=== PATIENT | female | born 1970 | race Two or more races ===

== ENCOUNTER 2020-07-07 21:34 | Inpatient (IN) | payer BC ==
[~2020-07-07] VITALS: Ht 162.6 cm; Wt 71.1 kg
[2020-07-07 22:52] LABS: BASO % 0 % (0-3); EOS % 0 % (0-3); HEMOGLOBIN 13.9 g/dL (12.0-15.5); LYMPH # 0.5 x10^3/uL (1.0-4.8); LYMPH % 13 % (24-48); MEAN CORPUSCULAR HEMOGLOBIN 31 pg (25-35); MEAN CORPUSCULAR HGB CONC 35 g/dL (31-37); MEAN CORPUSCULAR VOLUME 89 fL (79-100); MONO # 0.3 x10^3/uL (0.0-1.1); MONO % 7 % (0-9); NEUT % 80 % (31-73); PLATELET COUNT 247 x10^3/uL (140-400); RED BLOOD COUNT 4.52 x10^6/uL (3.50-5.40); RED CELL DISTRIBUTION WIDTH 12.8 % (11.5-14.5); WHITE BLOOD COUNT 3.8 x10^3/uL (4.0-11.0)
--- NOTE | 2020-07-07 22:57 | RAD ---
INDICATION: Reason: SHORT OF BREATH COVID 19 + / Spl. Instructions: / History: COMPARISON: None. FINDINGS: Single view of chest obtained. Multifocal opacities throughout the bilateral lungs. Degenerative changes of the spine. Cardiac silho uette is unremarkable. IMPRESSION: * Multifocal opacities throughout the bilateral lungs. Could be secondary to bilateral infiltrate. Electronically signed by: Kevin Isaac MD (07/07/2020 10:54 PM) [id number]
[2020-07-07 23:02] LABS: CALCIUM 9.6 mg/dL (8.5-10.1); CREATININE 1.1 mg/dL (0.6-1.0); GFR 52.8; POTASSIUM 4.2 mmol/L (3.5-5.1)
[2020-07-07 23:07] LABS: ALBUMIN 3.1 g/dL (3.4-5.0); ALBUMIN/GLOBULIN RATIO 0.6 (1.0-1.7); TOTAL BILIRUBIN 0.4 mg/dL (0.2-1.0); TOTAL PROTEIN 8.3 g/dL (6.4-8.2)
[2020-07-07] MEDS ORDERED: DEXAMETHASONE SOD PHOS 20 MG/5 ML VIAL. IV ONE (23:45)
[2020-07-07] MEDS ORDERED: AZITHRMYCN 500MG IVPB FOR OMNI 250 ML IV ONE (23:45)
[2020-07-07] MEDS ORDERED: cefTRIAXone IV Push 1 GM VIAL. IVP ONE (23:45)
[2020-07-07] MEDS ORDERED: IOHEXOL 350 MG/ML 100 ML VIAL. IV ONE (23:45)
[2020-07-07] MEDS ORDERED: CONTRAST GIVEN. MC PRN (23:45)
[2020-07-08 00:08] LABS: BASE EXCESS COOX -4 mmol/L (-3-3); HCO3 COOX 20 mmol/L (21-28); METHEMOGLOBIN 0.3 % (0.0-1.9); OXYHEMOGLOBIN 95.6 %; PCO2 COOX 34 mmHg (35-46); PO2 COOX 84 mmHg (75-108); SAT O2 COOX 96 % (92-99)
--- NOTE | 2020-07-08 00:32 | RAD ---
CT angiography chest with contrast PQRS statement: CT scans at this facility use dose reduction including either automated exposure cont rol, iterative reconstructions, and /or weight based radiation dosing via mA and kV modification when appropriate to reduce radiation dose to as low as reasonably achievable. Contrast: 75 mL Omnipaque 350 intravenous contrast. 3-D MIP reconstructions of the arteries acquired. HISTORY: Shortness of breath, hypoxia, elevated d-dimer. FINDINGS: Heart size normal. Aorta and esophagus are unremarkable. There is extensive respiratory mot ion artifact limiting assessment for peripheral lobar pulmonary artery emboli although in light of th is there is no discrete pulmonary artery emboli evident on this examination. Mild enlarged mediastina l adenopathy largest of which at the subcarinal station measure 2 x 1 cm. Mild hilar adenopathy measu ring up to 1 cm. Bilateral heterogeneous pulmonary groundglass opacities, there is airspace consolida tion at the lung bases. No pneumothorax. No pleural effusions. Bones are unremarkable. IMPRESSION: 1. No pulmonary artery emboli evident. See above. 2. Extensive pulmonary groundglass opacities and consolidated opacities. This is typical of multiloba r pneumonia or pneumonitis, including atypical infection such as viral Covid pneumonia. Follow-up CT imaging in 3-6 months will be of benefit. 3. Mild mediastinal and hilar adenopathy. Electronically signed by: Jb Wise MD (07/08/2020 12:29 AM) [facility]
--- NOTE | 2020-07-08 01:12 | PHYS DOC ---
Past Medical History Past Medical History: Diabetes-Type II, High Cholesterol, Hypertension Past Surgical History: , Hysterectomy Smoking Status: Never Smoker Alcohol Use: None General Adult EDM: Chief Complaint: SHORTNESS OF BREATH HPI: HPI: Patient is a 50 year old female, patient speaks Serbian only, HPI interpreted by medical tobacco buyer. Patient reports becoming positive for the COVID-19 virus on 07/01/2020, patient states that she has had headaches every day for the past 2 weeks, off-and-on body aches with off and on chills and fever however she has not taken her temperature at home. Patient complains of chest pain when she coughs however does not have chest pain if she has not coughing. Patient complains of increased shortness of breath that got worse today. Patient denies nausea, vomiting, diarrhea, abdominal pains. Patient denies loss of taste or loss of smell. Patient denies chest congestion stating that her cough is a dry cough. Patient denies nasal congestion. States that when she takes Motrin her headache goes away and her pain is a 0/10 on a 1-10 pain scale, however currently her pain is a 3/10 on a 1-10 pain scale. Is any allergies to medications patient states that she is diabetic and takes p.o. Metformin, insulin, and pravastatin. Review of Systems: Review of Systems: 14 body systems of review of systems have been reviewed. See HPI for pertinent positives and negative responses, otherwise all other systems are negative, nonpertinent or noncontributory. Heart Score: HEART Score for Chest Pain: HEART Score for Chest Pain Response (Comments) Value History Slighlty/Non-Suspicious 0 ECG Normal 0 Age >45 - < 65 1 Risk Factors 1 or 2 Risk Factors 1 Troponin < Normal Limit 0 Total 2 Risk Factors: Risk Factors: DM, Current or recent (<one month) smoker, HTN, HLP, family history of CAD, obesity. Risk Scores: Score 0 - 3: 2.5% MACE over next 6 weeks - Discharge Home Score 4 - 6: 20.3% MACE over next 6 weeks - Admit for Clinical Observation Score 7 - 10: 72.7% MACE over next 6 weeks - Early Invasive Strategies Current Medications: Current Medications Medications (Trade) Dose Ordered Sig/Antonia Start Time Stop Time Status Last Admin Dose Admin Azithromycin 250 ml @ 250 mls/hr 1X ONCE 2/1/21 23:45 07/08/20 00:44 DC 07/08/20 00:51 250 MLS/HR Ceftriaxone Sodium (Rocephin) 1 gm 1X ONCE 07/07/20 23:45 07/07/20 23:46 DC 07/08/20 00:51 1 GM Dexamethasone Sodium Phosphate (Decadron) 10 mg 1X ONCE 07/07/20 23:45 07/07/20 23:46 DC 07/08/20 00:52 10 MG Info (CONTRAST GIVEN -- Rx MONITORING) 1 each PRN DAILY PRN 07/07/20 23:45 07/09/20 23:44 Iohexol (Omnipaque 350 Mg/ml) 75 ml 1X ONCE 07/07/20 23:45 07/07/20 23:46 DC 07/07/20 00:15 75 ML Allergies: Allergies: Allergies Coded Allergies Type Severity Reaction Last Updated Verified No Known Drug Allergies 07/07/20 No Physical Exam: PE: Constitutional: Well developed, well nourished, no acute distress, non-toxic appearance. Patient in no respiratory distress however was coughing during physical examination. HENT: Normocephalic, atraumatic, bilateral external ears normal, oropharynx moist, no oral exudates, nose normal. Eyes: PERRLA, EOMI, conjunctiva normal, no discharge. Neck: Normal range of motion, no tenderness, supple, no stridor. Cardiovascular:Heart rate regular rhythm, no murmur Lungs & Thorax: Bilateral breath sounds diminished all lung han, no other adventitious lung sounds appreciated. Abdomen: Bowel sounds normal, soft, no tenderness, no masses, no pulsatile masses. Skin: Warm, dry, no erythema, no rash. Back: No tenderness, no CVA tenderness. Extremities: No tenderness, no cyanosis, no clubbing, ROM intact, no edema. Neurologic: Alert and oriented X 3, normal motor function, normal sensory function, no focal deficits noted. Psychologic: Affect normal, judgement normal, mood normal. Current Patient Data: Labs: Laboratory Tests Test 07/07/20 22:30 07/07/20 23:59 White Blood Count 3.8 x10^3/uL (4.0-11.0) L Red Blood Count 4.52 x10^6/uL (3.50-5.40) Hemoglobin 13.9 g/dL (12.0-15.5) Hematocrit 40.0 % (36.0-47.0) Mean Corpuscular Volume 89 fL (79-100) Mean Corpuscular Hemoglobin 31 pg (25-35) Mean Corpuscular Hemoglobin Concent 35 g/dL (31-37) Red Cell Distribution Width 12.8 % (11.5-14.5) Platelet Count 247 x10^3/uL (140-400) Neutrophils (%) (Auto) 80 % (31-73) H Lymphocytes (%) (Auto) 13 % (24-48) L Monocytes (%) (Auto) 7 % (0-9) Eosinophils (%) (Auto) 0 % (0-3) Basophils (%) (Auto) 0 % (0-3) Neutrophils # (Auto) 3.0 x10^3/uL (1.8-7.7) Lymphocytes # (Auto) 0.5 x10^3/uL (1.0-4.8) L Monocytes # (Auto) 0.3 x10^3/uL (0.0-1.1) Eosinophils # (Auto) 0.0 x10^3/uL (0.0-0.7) Basophils # (Auto) 0.0 x10^3/uL (0.0-0.2) D-Dimer (Charley) 0.79 ug/mlFEU (0.00-0.50) H Sodium Level 136 mmol/L (136-145) Potassium Level 4.2 mmol/L (3.5-5.1) Chloride Level 99 mmol/L (98-107) Carbon Dioxide Level 23 mmol/L (21-32) Anion Gap 14 (6-14) Blood Urea Nitrogen 17 mg/dL (7-20) Creatinine 1.1 mg/dL (0.6-1.0) H Estimated GFR (Cockcroft-Gault) 52.8 BUN/Creatinine Ratio 15 (6-20) Glucose Level 465 mg/dL (70-99) H Lactic Acid Level 1.1 mmol/L (0.4-2.0) Calcium Level 9.6 mg/dL (8.5-10.1) Total Bilirubin 0.4 mg/dL (0.2-1.0) Aspartate Amino Transferase (AST) 29 U/L (15-37) Alanine Aminotransferase (ALT) 40 U/L (14-59) Alkaline Phosphatase 80 U/L (46-116) Troponin I Quantitative < 0.017 ng/mL (0.000-0.055) UU-Wsb-U-Type Natriuretic Peptide 35 pg/mL (0-124) Total Protein 8.3 g/dL (6.4-8.2) H Albumin 3.1 g/dL (3.4-5.0) L Albumin/Globulin Ratio 0.6 (1.0-1.7) L O2 Saturation 96 % (92-99) Arterial Blood pH 7.40 (7.35-7.45) Arterial Blood pCO2 at Patient Temp 34 mmHg (35-46) L Arterial Blood pO2 at Patient Temp 84 mmHg (75-108) Arterial Blood HCO3 20 mmol/L (21-28) L Arterial Blood Base Excess -4 mmol/L (-3-3) L Oxyhemoglobin 95.6 % Methemoglobin 0.3 % (0.0-1.9) Carbon Monoxide, Quantitative 0.2 % (0.0-1.9) FiO2 21 Laboratory Tests 07/07/20 22:30 Laboratory Tests 07/07/20 22:30 Vital Signs: Vital Signs Date Time Temp Pulse Resp B/P (MAP) Pulse Ox O2 Delivery O2 Flow Rate FiO2 07/08/20 00:30 97.3 103 24 139/77 (97) 96 Nasal Cannula 2.0 97.3 EKG: EKG: EKG performed at 2227 by ED nursing staff, shows a sinus tachycardia without other ectopy, IA interval 0.150, QTc interval 0.460, no acute STEMI, no ACS, no acute ischemia appreciated, EKG interpreted by ED attending physician Dr. Donahue. Radiology/Procedures: Radiology/Procedures: PATIENT: RYLIE SALINASACCOUNT: [id number] : 1970 LOCATION: ER AGE: 50 SEX: F EXAM STATUS: REG ER ORD. PHYSICIAN: APOLINAR WATTS APRN REASON: SHORT OF BREATH, HYPOXIA, HIGH D-DIMER PROCEDURE: CT ANGIOGRAPHY CHEST CT angiography chest with contrast PQRS statement: CT scans at this facility use dose reduction including either automated exposure control, iterative reconstructions, and /or weight based radiation dosing via mA and kV modification when appropriate to reduce radiation dose to as low as reasonably achievable. Contrast: 75 mL Omnipaque 350 intravenous contrast. 3-D MIP reconstructions of the arteries acquired. HISTORY: Shortness of breath, hypoxia, elevated d-dimer. FINDINGS: Heart size normal. Aorta and esophagus are unremarkable. There is e xtensive respiratory motion artifact limiting assessment for peripheral lobar pulmonary artery emboli although in light of this there is no discrete pulmonary artery emboli evident on this examination. Mild enlarged mediastinal adenopathy largest of which at the subcarinal station measure 2 x 1 cm. Mild hilar adenopathy measuring up to 1 cm. Bilateral heterogeneous pulmonary groundglass opacities, there is airspace consolidation at the lung bases. No pneumothorax. No pleural effusions. Bones are unremarkable. IMPRESSION: 1. No pulmonary artery emboli evident. See above. 2. Extensive pulmonary groundglass opacities and consolidated opacities. This is typical of multilobar pneumonia or pneumonitis, including atypical infection such as viral Covid pneumonia. Follow-up CT imaging in 3-6 months will be of benefit. 3. Mild mediastinal and hilar adenopathy. Electronically signed by: Tiffany Wise MD (07/08/2020 12:29 AM) [facility] DICTATED and SIGNED BY: TIFFANY WISE MD DATE: 07/08/20 [id number] PATIENT: RYLIE SALINASACCOUNT: [id number] : 1970 LOCATION: ER AGE: 50 SEX: F EXAM STATUS: REG ER ORD. PHYSICIAN: APOLINAR WATTS APRN REASON: SHORT OF BREATH COVID 19 + PROCEDURE: CHEST AP ONLY INDICATION: Reason: SHORT OF BREATH COVID 19 + / Spl. Instructions: / History: COMPARISON: None. FINDINGS: Single view of chest obtained. Multifocal opacities throughout the bilateral lungs. Degenerative changes of the spine. Cardiac silhouette is unremarkable. IMPRESSION: * Multifocal opacities throughout the bilateral lungs. Could be secondary to bilateral infiltrate. Electronically signed by: Rodriguez Isaac MD (07/07/2020 10:54 PM) [id number] DICTATED and SIGNED BY: RODRIGUEZ ISAAC MD DATE: 07/07/20 [id number] 0 Course & Med Decision Making: Course & Med Decision Making Pertinent Labs and Imaging studies reviewed. (See chart for details) 50-year-old female, vital signs reviewed, presents emergency department complaining of becoming COVID-19 positive on 01 July 2020. Patient states that she has had headaches every day since then, noticed increasing cough shortness of breath that became worse today. Patient states that she has chest pain when she coughs but is relieved with taking p.o. Tylenol. In ER work-up was initiated, EKG, cardiac enzymes, CBC, BMP, D-dimer, lactic acid, blood cultures x2. Chest x-ray 1 view. Patient lactic acid negative, D-dimer was elevated, a CT angio chest was pe rformed CT angio chest and 1 view chest x-ray concerning for bilateral pneumonia. Patient's blood sugar per serum elevated at 465, started 1 L normal saline with 5 units IV regular insulin. Patient's ABG revealed a PO2 of 84 on 2 L nasal cannula, will keep patient on 2 L per nasal cannula. Discussed patient case with ED attending Dr. Donahue who agreed patient should be admitted to [facility] for diagnosis of COVID-19 positive, community-acquired pneumonia, bilateral pneumonia, hypoxia, poorly controlled diabetes. Patient admitted to [facility] Dr. Thurston. Patient admitted to the medicaltelemetry unit. Dr. Thurston has taken over care at this time. Patient COVID-19 positive, I wore N95 mask, goggles, face shield, PPE protective gown and gloves, there was a air purifier in the room at all times when in contact with patient. David Disclaimer: David Disclaimer: This electronic medical record was generated, in whole or in part, using a voice recognition dictation system. Departure Departure Impression: Primary Impression: COVID-19 Additional Impressions: Community acquired pneumonia Qualified Codes: J18.9 - Pneumonia, unspecified organism Bilateral pneumonia Qualified Codes: J18.9 - Pneumonia, unspecified organism Hypoxia Poorly controlled diabetes mellitus Disposition: 09 ADMITTED INPT THIS HOSP Admitting Physician: [facility] (Admit to medtelemetry to Dr. Thurston.) Condition: GUARDED Referrals: NO PCP (PCP) APOLINAR WATTS APRN Jul 08, 2020 01:12
[2020-07-08] MEDS ORDERED: ACETAMINOPHEN 325 MG TABLET. PO PRN ×2 (01:45→11:30)
[2020-07-08] MEDS ORDERED: fentaNYL PF VIAL 100 MCG/2 ML VIAL IV PRN (01:45)
[2020-07-08] MEDS ORDERED: ONDANSETRON PF 4 MG/2 ML VIAL. IV PRN (01:45)
[2020-07-08] MEDS ORDERED: IV NORMAL SALINE 1000ML BAG 1,000 ML IV ONE (02:00)
[2020-07-08] MEDS ORDERED: INSULIN REGULAR 100 UNIT/ML 3ML VIAL. IV ONE (02:00)
[2020-07-08] MEDS ORDERED: INSU100V13 SQ (02:48)
[2020-07-08] MEDS ORDERED: PRAV40TA2 PO (02:48)
[2020-07-08] MEDS ORDERED: METF10007 PO (02:48)
[2020-07-08] MEDS ORDERED: GLIM2TAB7 PO (02:48)
[2020-07-08 03:14] VITALS: BP 125/76
[2020-07-08] MEDS: BENZONATATE 100 MG CAPSULE. PO PRN ×3 (05:31→21:28)
[2020-07-08 07:00] VITALS: BP 115/71
--- NOTE | 2020-07-08 08:32 | EKG ---
[facility] [address] [place] [address] Test Date: 2020-07-07 Test Time: 22:27:10 Pat Name: RYLIE SALINAS Department: Room: [facility] Gender: F Website Admin: : 1970 Requested By: APOLINAR WATTS Order Number: [id number] Reading MD: Omar Sanchez Measurements Intervals [place] Rate: 111 P: 27 ID: 150 QRS: -30 QRSD: 100 T: 4 QT: 336 QTc: 460 Interpretive Statements SINUS TACHYCARDIA ABNORMAL LEFT AXIS DEVIATION LEFT ANTERIOR FASCICULAR BLOCK T ABNORMALITY IN ANTERIOR LEADS ABNORMAL ECG RI6.02 No previous ECG available for comparison Electronically Signed On 07-15-2020 10:30:15 ELECTRICAL PROSPECTING OBSERVER by Omar Sanchez
[2020-07-08] MEDS ORDERED: BISACODYL 10 MG SUPP.RECT. PR PRN (11:30)
[2020-07-08] MEDS ORDERED: MAG HYDROX/ALUMINUM HYD/SIMETH 30 ML ORAL.SUSP PO PRN (11:30)
[2020-07-08] MEDS ORDERED: ONDANSETRON PF 4 MG/2 ML VIAL. IVP PRN (11:30)
[2020-07-08] MEDS ORDERED: MAGNESIUM HYDROXIDE 2,400 MG/30 ML ORAL.SUSP. PO PRN (11:30)
[2020-07-08] MEDS ORDERED: DEXTROSE 50% 25 GM / 50ML DISP.SYRIN. IV PRN (11:30)
[2020-07-08] MEDS ORDERED: ELECTROLYTE (NON-ICU) PROTOCOL. MC PRN (11:30)
[2020-07-08] MEDS ORDERED: MORPHINE SULFATE 2 MG/ML VIAL. IV PRN (11:30)
[2020-07-08] MEDS ORDERED: LACTULOSE 20 GM/30 ML SOLUTION. PO PRN (11:30)
[2020-07-08] MEDS ORDERED: CALCIUM CARBONATE 500 MG TAB.CHEW PO PRN (11:30)
[2020-07-08 11:35] VITALS: BP 120/77
[2020-07-08] MEDS: INSULIN LISPRO 300 UNITS/3 ML VIAL. SQ SCH ×2 (11:43→17:10)
[2020-07-08] MEDS ORDERED: INSULIN GLARGINE SYRINGE. SQ SCH ×2 (12:00→21:00)
--- NOTE | 2020-07-08 12:10 | PDOC1 ---
History and Physical Date of Admission Date of Admission 07/08/2020 Identification/Chief Complaint Chief Complaint I have covid Source Source: Chart review, Patient History of Present Illness History of Present Illness Patient is a 50-year-old female with past medical history of diabetes and hypertension dyslipidemia who was in her usual state of health until last week when her unfortunately was diagnosed with Covid. He is admitted to our institution as well and got quite sick and requiring oxygen reason why he was brought to the emergency department and the patient's also has worsen her condition. We have been asked to admit for supportive measures. The patient at the time my evaluation is in no apparent distress feels better compared to admission. She does not present severe dyspnea she denies any headaches no blurred vision no dysphagia odynophagia no focal neurological deficits no chest pain no palpitation no abdominal pain no nausea vomiting or diarrhea has been reported. Plan of care has been explained detail and all of her concerns were addressed to the best of my abilities Past Medical History Cardiovascular: HTN, Hyperlipidemia Endocrine: Diabetes Past Surgical History Past Surgical History: No pertinent history Family History Family History: No Significant Social History Smoke: No ALCOHOL: none Drugs: None Current Problem List Problem List Problems Medical Problems: (1) Bilateral pneumonia Status: Acute (2) Community acquired pneumonia Status: Acute (3) COVID-19 Status: Acute (4) Hypoxia Status: Acute (5) Poorly controlled diabetes mellitus Status: Acute Current Medications Current Medications Current Medications Medications (Trade) Dose Ordered Sig/Antonia Start Time Stop Time Status Last Admin Dose Admin Acetaminophen (Tylenol) 650 mg PRN Q4HRS PRN 07/08/20 01:45 07/09/20 01:44 07/08/20 05:31 650 MG Azithromycin 250 ml @ 250 mls/hr 1X ONCE 07/07/20 23:45 07/08/20 00:44 DC 07/08/20 00:51 250 MLS/HR Benzonatate (Tessalon Perle) 100 mg PRN TID PRN 07/08/20 03:30 07/08/20 05:31 100 MG Ceftriaxone Sodium (Rocephin) 1 gm 1X ONCE 07/07/20 23:45 07/07/20 23:46 DC 07/08/20 00:51 1 GM Dexamethasone Sodium Phosphate (Decadron) 10 mg 1X ONCE 07/07/20 23:45 07/07/20 23:46 DC 07/08/20 00:52 10 MG Dextrose (Dextrose 50%-Water Syringe) 12.5 gm PRN Q15MIN PRN 07/08/20 11:30 Fentanyl Citrate (Fentanyl 2ml Vial) 50 mcg PRN Q4HRS PRN 07/08/20 01:45 07/09/20 01:44 07/08/20 05:31 50 MCG Info (CONTRAST GIVEN -- Rx MONITORING) 1 each PRN DAILY PRN 07/07/20 23:45 07/09/20 23:44 Insulin Glargine (Lantus Syringe) 12 unit BID 07/08/20 12:00 07/08/20 11:42 12 UNIT Insulin Human Lispro (HumaLOG) 0-7 UNITS TIDWMEALS 07/08/20 12:00 07/08/20 11:43 7 UNITS Insulin Human Regular (HumuLIN R VIAL) 5 unit 1X ONCE 07/08/20 02:00 07/08/20 02:01 DC 07/08/20 01:56 5 UNIT Iohexol (Omnipaque 350 Mg/ml) 75 ml 1X ONCE 07/07/20 23:45 07/07/20 23:46 DC 07/07/20 00:15 75 ML Ondansetron HCl (Zofran) 4 mg PRN Q8HRS PRN 07/08/20 01:45 07/09/20 01:44 Sodium Chloride 1,000 ml @ 1,000 mls/hr 1X ONCE 07/08/20 02:00 07/08/20 02:59 DC 07/08/20 01:56 1,000 MLS/HR Allergies Allergies Allergies Coded Allergies Type Severity Reaction Last Updated Verified No Known Drug Allergies 07/07/20 No ROS Review of System CONSTITUTIONAL: No fever or chills EYES: No recent changes SKIN: No rash or itching CARDIOVASCULAR: No chest pain, syncope, palpitations, or edema RESPIRATORY: No SOB or cough GASTROINTESTINAL: No nausea, vomiting or abdominal pain NEUROLOGICAL: No headaches or weakness ENDOCRINE: No cold or heat intolerance GENITOURINARY: No urgency or frequency of urination MUSCULOSKELETAL: No back pain or joint pain LYMPHATICS: No enlarged lymph nodes PSYCHIATRIC: No anxiety or depression Physical Exam Physical Exam GEN: No apparent distress. Alert and oriented HEENT: Normal cephalic, atraumatic, external auditory canals are patent. Mucous membranes are moist but appears to be pale as well. EYES: Extraocular muscles are intact, pupil are equally round and reactive to light and accommodation. Conjunctive does appear to be pale MUSCULOSKELETAL: Well developed , well nourished, good range of motion ENDOCRINE: No thyromegaly was palpated LYMPHATICS: No cervical chain or axillary nodes were noted HEMATOPOIETIC: No bruising NECK: Supple, no JVD, no thyromegaly was noted LUNGS: Clear to auscultation in all lung han without rhonchi or wheezing HEART: RRR, S!, S2 present. Peripheral pulses intact, no obvious murmurs noted ABDOMEN: Soft, nontender. Positive bowel sounds, no organomegaly, normal bowel sounds EXTREMITIES: Without clubbing, cyanosis, or edema. Pedal pulses intact. Negative Homans sign NEUROLOGIC: Normal speech and tone. A&O x 3, moves all extremities, no o bvious focal deficits PSYCHIATRIC: Normal affect, normal mood. Stable SKIN: No ulcerations or rashes, good skin turgor, no jaundice VASCULAR: Good capillary refill, neurovascular bundle appears to be intact Tions Vitals Vitals Vital Signs Date Time Temp Pulse Resp B/P (MAP) Pulse Ox O2 Delivery O2 Flow Rate FiO2 07/08/20 11:35 98.4 102 24 120/77 (91) 93 Nasal Cannula 2.0 98.4 Labs Labs Laboratory Tests Test 07/07/20 22:30 07/07/20 23:59 07/08/20 07:51 07/08/20 10:48 White Blood Count 3.8 x10^3/uL (4.0-11.0) Red Blood Count 4.52 x10^6/uL (3.50-5.40) Hemoglobin 13.9 g/dL (12.0-15.5) Hematocrit 40.0 % (36.0-47.0) Mean Corpuscular Volume 89 fL (79-100) Mean Corpuscular Hemoglobin 31 pg (25-35) Mean Corpuscular Hemoglobin Concent 35 g/dL (31-37) Red Cell Distribution Width 12.8 % (11.5-14.5) Platelet Count 247 x10^3/uL (140-400) Neutrophils (%) (Auto) 80 % (31-73) Lymphocytes (%) (Auto) 13 % (24-48) Monocytes (%) (Auto) 7 % (0-9) Eosinophils (%) (Auto) 0 % (0-3) Basophils (%) (Auto) 0 % (0-3) Neutrophils # (Auto) 3.0 x10^3/uL (1.8-7.7) Lymphocytes # (Auto) 0.5 x10^3/uL (1.0-4.8) Monocytes # (Auto) 0.3 x10^3/uL (0.0-1.1) Eosinophils # (Auto) 0.0 x10^3/uL (0.0-0.7) Basophils # (Auto) 0.0 x10^3/uL (0.0-0.2) D-Dimer (Charley) 0.79 ug/mlFEU (0.00-0.50) Sodium Level 136 mmol/L (136-145) Potassium Level 4.2 mmol/L (3.5-5.1) Chloride Level 99 mmol/L (98-107) Carbon Dioxide Level 23 mmol/L (21-32) Anion Gap 14 (6-14) Blood Urea Nitrogen 17 mg/dL (7-20) Creatinine 1.1 mg/dL (0.6-1.0) Estimated GFR (Cockcroft-Gault) 52.8 BUN/Creatinine Ratio 15 (6-20) Glucose Level 465 mg/dL (70-99) Lactic Acid Level 1.1 mmol/L (0.4-2.0) Calcium Level 9.6 mg/dL (8.5-10.1) Total Bilirubin 0.4 mg/dL (0.2-1.0) Aspartate Amino Transf (AST/SGOT) 29 U/L (15-37) Alanine Aminotransferase (ALT/SGPT) 40 U/L (14-59) Alkaline Phosphatase 80 U/L (46-116) Troponin I Quantitative < 0.017 ng/mL (0.000-0.055) YO-Lmn-V-Type Natriuretic Peptide 35 pg/mL (0-124) Total Protein 8.3 g/dL (6.4-8.2) Albumin 3.1 g/dL (3.4-5.0) Albumin/Globulin Ratio 0.6 (1.0-1.7) O2 Saturation 96 % (92-99) Arterial Blood pH 7.40 (7.35-7.45) Arterial Blood pCO2 at Patient Temp 34 mmHg (35-46) Arterial Blood pO2 at Patient Temp 84 mmHg (75-108) Arterial Blood HCO3 20 mmol/L (21-28) Arterial Blood Base Excess -4 mmol/L (-3-3) Oxyhemoglobin 95.6 % Methemoglobin 0.3 % (0.0-1.9) Carbon Monoxide, Quantitative 0.2 % (0.0-1.9) FiO2 21 Glucose (Fingerstick) 363 mg/dL (70-99) 457 mg/dL (70-99) Laboratory Tests Test 07/07/20 22:30 07/07/20 23:59 07/08/20 07:51 07/08/20 10:48 White Blood Count 3.8 x10^3/uL (4.0-11.0) Red Blood Count 4.52 x10^6/uL (3.50-5.40) Hemoglobin 13.9 g/dL (12.0-15.5) Hematocrit 40.0 % (36.0-47.0) Mean Corpuscular Volume 89 fL (79-100) Mean Corpuscular Hemoglobin 31 pg (25-35) Mean Corpuscular Hemoglobin Concent 35 g/dL (31-37) Red Cell Distribution Width 12.8 % (11.5-14.5) Platelet Count 247 x10^3/uL (140-400) Neutrophils (%) (Auto) 80 % (31-73) Lymphocytes (%) (Auto) 13 % (24-48) Monocytes (%) (Auto) 7 % (0-9) Eosinophils (%) (Auto) 0 % (0-3) Basophils (%) (Auto) 0 % (0-3) Neutrophils # (Auto) 3.0 x10^3/uL (1.8-7.7) Lymphocytes # (Auto) 0.5 x10^3/uL (1.0-4.8) Monocytes # (Auto) 0.3 x10^3/uL (0.0-1.1) Eosinophils # (Auto) 0.0 x10^3/uL (0.0-0.7) Basophils # (Auto) 0.0 x10^3/uL (0.0-0.2) D-Dimer (Charley) 0.79 ug/mlFEU (0.00-0.50) Sodium Level 136 mmol/L (136-145) Potassium Level 4.2 mmol/L (3.5-5.1) Chloride Level 99 mmol/L (98-107) Carbon Dioxide Level 23 mmol/L (21-32) Anion Gap 14 (6-14) Blood Urea Nitrogen 17 mg/dL (7-20) Creatinine 1.1 mg/dL (0.6-1.0) Estimated GFR (Cockcroft-Gault) 52.8 BUN/Creatinine Ratio 15 (6-20) Glucose Level 465 mg/dL (70-99) Lactic Acid Level 1.1 mmol/L (0.4-2.0) Calcium Level 9.6 mg/dL (8.5-10.1) Total Bilirubin 0.4 mg/dL (0.2-1.0) Aspartate Amino Transf (AST/SGOT) 29 U/L (15-37) Alanine Aminotransferase (ALT/SGPT) 40 U/L (14-59) Alkaline Phosphatase 80 U/L (46-116) Troponin I Quantitative < 0.017 ng/mL (0.000-0.055) KF-Yhl-K-Type Natriuretic Peptide 35 pg/mL (0-124) Total Protein 8.3 g/dL (6.4-8.2) Albumin 3.1 g/dL (3.4-5.0) Albumin/Globulin Ratio 0.6 (1.0-1.7) O2 Saturation 96 % (92-99) Arterial Blood pH 7.40 (7.35-7.45) Arterial Blood pCO2 at Patient Temp 34 mmHg (35-46) Arterial Blood pO2 at Patient Temp 84 mmHg (75-108) Arterial Blood HCO3 20 mmol/L (21-28) Arterial Blood Base Excess -4 mmol/L (-3-3) Oxyhemoglobin 95.6 % Methemoglobin 0.3 % (0.0-1.9) Carbon Monoxide, Quantitative 0.2 % (0.0-1.9) FiO2 21 Glucose (Fingerstick) 363 mg/dL (70-99) 457 mg/dL (70-99) VTE Prophylaxis Ordered VTE Prophylaxis Devices: No VTE Pharmacological Prophylaxi: Yes Assessment/Plan Assessment/Plan COVID-19 infection Diabetes mellitus type 2 insulin requiring Hypertension Dyslipidemia Overweight with a BMI of 27 Plan Start Solu-Medrol Insulin for hyperglycemia Vitamin C&D Zinc Monitor oxygen requirements DVT prophylaxis with Lovenox Further recommendations based on the clinical course Justifications for Admission Other Justification SUKHDEV GUERIN MD Jul 08, 2020 12:10
[2020-07-08] MEDS: ZINC SULFATE 220 MG CAPSULE. PO SCH (12:24)
[2020-07-08] MEDS: ENOXAPARIN 40 MG/0.4 ML SYRINGE. SQ SCH ×2 (12:25→21:29)
[2020-07-08] MEDS: ASCORBIC ACID 500 MG TABLET PO SCH ×2 (13:22→21:28)
[2020-07-08] MEDS: HYDROcodone/APAP 5/325MG 1 TAB TABLET PO PRN ×2 (13:22→21:59)
[2020-07-08] MEDS: methylPREDNISolone SOD SUCC PF 40 MG/ML VIAL. IV SCH ×2 (13:22→21:32)
--- NOTE | 2020-07-08 14:33 | NUR ---
SW following for discharge planning. Spoke with RN and reviewed chart. Pt from home with spouse (spouse also currently admitted to [facility]). Pt COVID positive and on 2l 02. Pt on IV Rocephin. SW following.
[2020-07-08 15:09] VITALS: BP 102/67
[2020-07-08] MEDS ORDERED: INSULIN GLARGINE SYRINGE. SQ ONE (17:30)
[2020-07-08 19:00] VITALS: BP 101/66
[2020-07-08] MEDS: SENNOSIDES/DOCUSATE 8.6/50MG TABLET. PO SCH (21:28)
[2020-07-08] MEDS: ATORVASTATIN CALCIUM 10 MG TABLET. PO SCH (21:29)
[2020-07-08] MEDS: cefTRIAXone IV Push 1 GM VIAL. IVP SCH (21:32)
[2020-07-08 23:00] VITALS: BP 129/75
[2020-07-08] MEDS ORDERED: INSULIN LISPRO 300 UNITS/3 ML VIAL. SQ ONE (23:30)
[2020-07-09 03:00] VITALS: BP 135/73
[2020-07-09] MEDS: BENZONATATE 100 MG CAPSULE. PO PRN ×3 (06:21→20:49)
[2020-07-09] MEDS: methylPREDNISolone SOD SUCC PF 40 MG/ML VIAL. IV SCH ×3 (06:21→20:50)
[2020-07-09 07:00] VITALS: BP 119/73
[2020-07-09 07:56] LABS: BASO % 0 % (0-3); EOS % 0 % (0-3); HEMOGLOBIN 14.1 g/dL (12.0-15.5); LYMPH # 0.7 x10^3/uL (1.0-4.8); LYMPH % 9 % (24-48); MEAN CORPUSCULAR HEMOGLOBIN 30 pg (25-35); MEAN CORPUSCULAR HGB CONC 34 g/dL (31-37); MEAN CORPUSCULAR VOLUME 88 fL (79-100); MONO # 0.6 x10^3/uL (0.0-1.1); MONO % 7 % (0-9); NEUT # 7.2 x10^3/uL (1.8-7.7); NEUT % 85 % (31-73); PLATELET COUNT 369 x10^3/uL (140-400); RED BLOOD COUNT 4.65 x10^6/uL (3.50-5.40); RED CELL DISTRIBUTION WIDTH 12.9 % (11.5-14.5); WHITE BLOOD COUNT 8.5 x10^3/uL (4.0-11.0)
[2020-07-09] MEDS: SENNOSIDES/DOCUSATE 8.6/50MG TABLET. PO SCH ×2 (08:23→20:49)
[2020-07-09] MEDS: CHOLECALCIFEROL (VITAMIN D3) 1,000 UNIT TABLET PO SCH (08:23)
[2020-07-09] MEDS: ZINC SULFATE 220 MG CAPSULE. PO SCH (08:23)
[2020-07-09] MEDS: AZITHROMYCIN 250 MG TABLET. PO SCH (08:24)
[2020-07-09] MEDS: ASCORBIC ACID 500 MG TABLET PO SCH ×3 (08:24→20:49)
[2020-07-09] MEDS: HYDROcodone/APAP 5/325MG 1 TAB TABLET PO PRN ×3 (08:29→20:50)
[2020-07-09] MEDS: ENOXAPARIN 40 MG/0.4 ML SYRINGE. SQ SCH ×2 (08:30→20:48)
[2020-07-09] MEDS: INSULIN LISPRO 300 UNITS/3 ML VIAL. SQ SCH ×3 (08:35→17:01)
[2020-07-09 08:54] LABS: CALCIUM 9.8 mg/dL (8.5-10.1); GFR 58.9; MAGNESIUM 2.4 mg/dL (1.8-2.4); PHOSPHORUS 3.9 mg/dL (2.6-4.7); POTASSIUM 4.3 mmol/L (3.5-5.1)
[2020-07-09] MEDS: INSULIN GLARGINE SYRINGE. SQ SCH ×2 (09:30→20:49)
[2020-07-09 11:00] VITALS: BP 113/66
--- NOTE | 2020-07-09 11:27 | PDOC ---
PROGRESS NOTES Date of Service: DATE: 07/09/20 TIME: 11:22 Chief Complaint Chief Complaint Assessment/Plan COVID-19 infection Diabetes mellitus type 2 insulin requiring Uncontrolled diabetes secondary to steroid Hypertension Dyslipidemia Overweight with a BMI of 27 Plan Solu-Medrol Insulin for hyperglycemia We will start lispro if the patient has good oral intake Vitamin C&D Zinc Monitor oxygen requirements DVT prophylaxis with Lovenox Further recommendations based on the clinical course History of Present Illness History of Present Illness History of Present Illness Patient is a 50-year-old female with past medical history of diabetes and hypertension dyslipidemia who was in her usual state of health until last week when her unfortunately was diagnosed with Covid. He is admitted to our institution as well and got quite sick and requiring oxygen reason why he was brought to the emergency department and the patient's also has worsen her condition. We have been asked to admit for supportive measures. The patient at the time my evaluation is in no apparent distress feels better compared to admission. She does not present severe dyspnea she denies any headaches no blurred vision no dysphagia odynophagia no focal neurological deficits no chest pain no palpitation no abdominal pain no nausea vomiting or diarrhea has been reported. Plan of care has been explained detail and all of her concerns were addressed to the best of my abilities 07/09: No acute events reported overnight, case discussed with nursing staff patient in no acute distress no complaints during my visit Vitals Vitals Vital Signs Date Time Temp Pulse Resp B/P (MAP) Pulse Ox O2 Delivery O2 Flow Rate FiO2 07/09/20 11:00 97.2 84 18 113/66 (82) 92 Nasal Cannula 4.0 97.2 Physical Exam General: Alert, Oriented X3, Cooperative, No acute distress Heart: Regular rate, Normal S1, Normal S2 Lungs: Clear Abdomen: Normal bowel sounds, Soft, No tenderness Extremities: No clubbing, No cyanosis Skin: No rashes Labs LABS Laboratory Tests Test 07/08/20 16:41 07/08/20 19:06 07/09/20 07:12 07/09/20 07:19 Glucose (Fingerstick) 406 mg/dL (70-99) 489 mg/dL (70-99) 369 mg/dL (70-99) White Blood Count 8.5 x10^3/uL (4.0-11.0) Red Blood Count 4.65 x10^6/uL (3.50-5.40) Hemoglobin 14.1 g/dL (12.0-15.5) Hematocrit 41.0 % (36.0-47.0) Mean Corpuscular Volume 88 fL (79-100) Mean Corpuscular Hemoglobin 30 pg (25-35) Mean Corpuscular Hemoglobin Concent 34 g/dL (31-37) Red Cell Distribution Width 12.9 % (11.5-14.5) Platelet Count 369 x10^3/uL (140-400) Neutrophils (%) (Auto) 85 % (31-73) Lymphocytes (%) (Auto) 9 % (24-48) Monocytes (%) (Auto) 7 % (0-9) Eosinophils (%) (Auto) 0 % (0-3) Basophils (%) (Auto) 0 % (0-3) Neutrophils # (Auto) 7.2 x10^3/uL (1.8-7.7) Lymphocytes # (Auto) 0.7 x10^3/uL (1.0-4.8) Monocytes # (Auto) 0.6 x10^3/uL (0.0-1.1) Eosinophils # (Auto) 0.0 x10^3/uL (0.0-0.7) Basophils # (Auto) 0.0 x10^3/uL (0.0-0.2) Sodium Level 138 mmol/L (136-145) Potassium Level 4.3 mmol/L (3.5-5.1) Chloride Level 99 mmol/L (98-107) Carbon Dioxide Level 27 mmol/L (21-32) Anion Gap 12 (6-14) Blood Urea Nitrogen 27 mg/dL (7-20) Creatinine 1.0 mg/dL (0.6-1.0) Estimated GFR (Cockcroft-Gault) 58.9 Glucose Level 364 mg/dL (70-99) Calcium Level 9.8 mg/dL (8.5-10.1) Phosphorus Level 3.9 mg/dL (2.6-4.7) Magnesium Level 2.4 mg/dL (1.8-2.4) Ferritin 454 ng/mL (8-252) Lactate Dehydrogenase 208 U/L (81-234) Procalcitonin < 0.10 ng/mL (0.00-0.10) Test 2/3/21 10:13 Glucose (Fingerstick) 577 mg/dL (70-99) Assessment and Plan Assessmemt and Plan Problems Medical Problems: (1) Bilateral pneumonia Status: Acute (2) Community acquired pneumonia Status: Acute (3) COVID-19 Status: Acute (4) Hypoxia Status: Acute (5) Poorly controlled diabetes mellitus Status: Acute Comment Review of Relevant I have reviewed the following items bird (where applicable) has been applied. Labs Laboratory Tests Test 07/07/20 22:30 07/07/20 23:59 07/08/20 07:51 07/08/20 10:48 White Blood Count 3.8 x10^3/uL (4.0-11.0) Red Blood Count 4.52 x10^6/uL (3.50-5.40) Hemoglobin 13.9 g/dL (12.0-15.5) Hematocrit 40.0 % (36.0-47.0) Mean Corpuscular Volume 89 fL (79-100) Mean Corpuscular Hemoglobin 31 pg (25-35) Mean Corpuscular Hemoglobin Concent 35 g/dL (31-37) Red Cell Distribution Width 12.8 % (11.5-14.5) Platelet Count 247 x10^3/uL (140-400) Neutrophils (%) (Auto) 80 % (31-73) Lymphocytes (%) (Auto) 13 % (24-48) Monocytes (%) (Auto) 7 % (0-9) Eosinophils (%) (Auto) 0 % (0-3) Basophils (%) (Auto) 0 % (0-3) Neutrophils # (Auto) 3.0 x10^3/uL (1.8-7.7) Lymphocytes # (Auto) 0.5 x10^3/uL (1.0-4.8) Monocytes # (Auto) 0.3 x10^3/uL (0.0-1.1) Eosinophils # (Auto) 0.0 x10^3/uL (0.0-0.7) Basophils # (Auto) 0.0 x10^3/uL (0.0-0.2) D-Dimer (Charley) 0.79 ug/mlFEU (0.00-0.50) Sodium Level 136 mmol/L (136-145) Potassium Level 4.2 mmol/L (3.5-5.1) Chloride Level 99 mmol/L (98-107) Carbon Dioxide Level 23 mmol/L (21-32) Anion Gap 14 (6-14) Blood Urea Nitrogen 17 mg/dL (7-20) Creatinine 1.1 mg/dL (0.6-1.0) Estimated GFR (Cockcroft-Gault) 52.8 BUN/Creatinine Ratio 15 (6-20) Glucose Level 465 mg/dL (70-99) Lactic Acid Level 1.1 mmol/L (0.4-2.0) Calcium Level 9.6 mg/dL (8.5-10.1) Total Bilirubin 0.4 mg/dL (0.2-1.0) Aspartate Amino Transf (AST/SGOT) 29 U/L (15-37) Alanine Aminotransferase (ALT/SGPT) 40 U/L (14-59) Alkaline Phosphatase 80 U/L (46-116) Troponin I Quantitative < 0.017 ng/mL (0.000-0.055) FG-Mum-V-Type Natriuretic Peptide 35 pg/mL (0-124) Total Protein 8.3 g/dL (6.4-8.2) Albumin 3.1 g/dL (3.4-5.0) Albumin/Globulin Ratio 0.6 (1.0-1.7) O2 Saturation 96 % (92-99) Arterial Blood pH 7.40 (7.35-7.45) Arterial Blood pCO2 at Patient Temp 34 mmHg (35-46) Arterial Blood pO2 at Patient Temp 84 mmHg (75-108) Arterial Blood HCO3 20 mmol/L (21-28) Arterial Blood Base Excess -4 mmol/L (-3-3) Oxyhemoglobin 95.6 % Methemoglobin 0.3 % (0.0-1.9) Carbon Monoxide, Quantitative 0.2 % (0.0-1.9) FiO2 21 Glucose (Fingerstick) 363 mg/dL (70-99) 457 mg/dL (70-99) Test 07/08/20 16:41 07/08/20 19:06 07/09/20 07:12 07/09/20 07:19 Glucose (Fingerstick) 406 mg/dL (70-99) 489 mg/dL (70-99) 369 mg/dL (70-99) White Blood Count 8.5 x10^3/uL (4.0-11.0) Red Blood Count 4.65 x10^6/uL (3.50-5.40) Hemoglobin 14.1 g/dL (12.0-15.5) Hematocrit 41.0 % (36.0-47.0) Mean Corpuscular Volume 88 fL (79-100) Mean Corpuscular Hemoglobin 30 pg (25-35) Mean Corpuscular Hemoglobin Concent 34 g/dL (31-37) Red Cell Distribution Width 12.9 % (11.5-14.5) Platelet Count 369 x10^3/uL (140-400) Neutrophils (%) (Auto) 85 % (31-73) Lymphocytes (%) (Auto) 9 % (24-48) Monocytes (%) (Auto) 7 % (0-9) Eosinophils (%) (Auto) 0 % (0-3) Basophils (%) (Auto) 0 % (0-3) Neutrophils # (Auto) 7.2 x10^3/uL (1.8-7.7) Lymphocytes # (Auto) 0.7 x10^3/uL (1.0-4.8) Monocytes # (Auto) 0.6 x10^3/uL (0.0-1.1) Eosinophils # (Auto) 0.0 x10^3/uL (0.0-0.7) Basophils # (Auto) 0.0 x10^3/uL (0.0-0.2) Sodium Level 138 mmol/L (136-145) Potassium Level 4.3 mmol/L (3.5-5.1) Chloride Level 99 mmol/L (98-107) Carbon Dioxide Level 27 mmol/L (21-32) Anion Gap 12 (6-14) Blood Urea Nitrogen 27 mg/dL (7-20) Creatinine 1.0 mg/dL (0.6-1.0) Estimated GFR (Cockcroft-Gault) 58.9 Glucose Level 364 mg/dL (70-99) Calcium Level 9.8 mg/dL (8.5-10.1) Phosphorus Level 3.9 mg/dL (2.6-4.7) Magnesium Level 2.4 mg/dL (1.8-2.4) Ferritin 454 ng/mL (8-252) Lactate Dehydrogenase 208 U/L (81-234) Procalcitonin < 0.10 ng/mL (0.00-0.10) Test 07/09/20 10:13 Glucose (Fingerstick) 577 mg/dL (70-99) Laboratory Tests Test 07/08/20 16:41 07/08/20 19:06 07/09/20 07:12 07/09/20 07:19 Glucose (Fingerstick) 406 mg/dL (70-99) 489 mg/dL (70-99) 369 mg/dL (70-99) White Blood Count 8.5 x10^3/uL (4.0-11.0) Red Blood Count 4.65 x10^6/uL (3.50-5.40) Hemoglobin 14.1 g/dL (12.0-15.5) Hematocrit 41.0 % (36.0-47.0) Mean Corpuscular Volume 88 fL (79-100) Mean Corpuscular Hemoglobin 30 pg (25-35) Mean Corpuscular Hemoglobin Concent 34 g/dL (31-37) Red Cell Distribution Width 12.9 % (11.5-14.5) Platelet Count 369 x10^3/uL (140-400) Neutrophils (%) (Auto) 85 % (31-73) Lymphocytes (%) (Auto) 9 % (24-48) Monocytes (%) (Auto) 7 % (0-9) Eosinophils (%) (Auto) 0 % (0-3) Basophils (%) (Auto) 0 % (0-3) Neutrophils # (Auto) 7.2 x10^3/uL (1.8-7.7) Lymphocytes # (Auto) 0.7 x10^3/uL (1.0-4.8) Monocytes # (Auto) 0.6 x10^3/uL (0.0-1.1) Eosinophils # (Auto) 0.0 x10^3/uL (0.0-0.7) Basophils # (Auto) 0.0 x10^3/uL (0.0-0.2) Sodium Level 138 mmol/L (136-145) Potassium Level 4.3 mmol/L (3.5-5.1) Chloride Level 99 mmol/L (98-107) Carbon Dioxide Level 27 mmol/L (21-32) Anion Gap 12 (6-14) Blood Urea Nitrogen 27 mg/dL (7-20) Creatinine 1.0 mg/dL (0.6-1.0) Estimated GFR (Cockcroft-Gault) 58.9 Glucose Level 364 mg/dL (70-99) Calcium Level 9.8 mg/dL (8.5-10.1) Phosphorus Level 3.9 mg/dL (2.6-4.7) Magnesium Level 2.4 mg/dL (1.8-2.4) Ferritin 454 ng/mL (8-252) Lactate Dehydrogenase 208 U/L (81-234) Procalcitonin < 0.10 ng/mL (0.00-0.10) Test 07/09/20 10:13 Glucose (Fingerstick) 577 mg/dL (70-99) Microbiology 07/07/20 Blood Culture - Preliminary, Resulted NO GROWTH AFTER 1 DAY Medications Current Medications Dexamethasone Sodium Phosphate (Decadron) 10 mg 1X ONCE IV Last administered on 07/08/20at 00:52; Start 07/07/20 at 23:45; Stop 07/07/20 at 23:46; Status DC Azithromycin 250 ml @ 250 mls/hr 1X ONCE IV Last administered on 07/08/20at 00:51; Start 07/07/20 at 23:45; Stop 07/08/20 at 00:44; Status DC Ceftriaxone Sodium (Rocephin) 1 gm 1X ONCE IVP Last administered on 07/08/20at 00:51; Start 07/07/20 at 23:45; Stop 07/07/20 at 23:46; Status DC Iohexol (Omnipaque 350 Mg/ml) 75 ml 1X ONCE IV Last administered on 07/07/20at 00:15; Start 07/07/20 at 23:45; Stop 07/07/20 at 23:46; Status DC Info (CONTRAST GIVEN -- Rx MONITORING) 1 each PRN DAILY PRN MC SEE COMMENTS; Start 07/07/20 at 23:45; Stop 07/09/20 at 23:44 Sodium Chloride 1,000 ml @ 1,000 mls/hr 1X ONCE IV Last administered on 07/08/20at 01:56; Start 07/08/20 at 02:00; Stop 07/08/20 at 02:59; Status DC Insulin Human Regular (HumuLIN R VIAL) 5 unit 1X ONCE IV Last administered on 07/08/20at 01:56; Start 07/08/20 at 02:00; Stop 07/08/20 at 02:01; Status DC Ondansetron HCl (Zofran) 4 mg PRN Q8HRS PRN IV NAUSEA/VOMITING 1ST CHOICE; Start 07/08/20 at 01:45; Stop 07/08/20 at 12:09; Status DC Fentanyl Citrate (Fentanyl 2ml Vial) 50 mcg PRN Q4HRS PRN IV SEVERE PAIN 7-10 Last administered on 07/08/20at 05:31; Start 07/08/20 at 01:45; Stop 07/09/20 at 01:44; Status DC Acetaminophen (Tylenol) 650 mg PRN Q4HRS PRN PO FEVER > 100.3'F Last administered on 07/08/20at 05:31; Start 07/08/20 at 01:45; Stop 07/09/20 at 01:44; Status DC Benzonatate (Tessalon Perle) 100 mg PRN TID PRN PO COUGH Last administered on 07/09/20at 08:24; Start 07/08/20 at 03:30 Insulin Glargine (Lantus Syringe) 12 unit BID SQ Last administered on 07/08/20at 11:42; Start 07/08/20 at 12:00; Stop 07/08/20 at 12:13; Status DC Insulin Human Lispro (HumaLOG) 0-7 UNITS TIDWMEALS SQ Last administered on 07/09/20at 08:35; Start 07/08/20 at 12:00 Dextrose (Dextrose 50%-Water Syringe) 12.5 gm PRN Q15MIN PRN IV SEE COMMENTS; Start 07/08/20 at 11:30 Ondansetron HCl (Zofran) 4 mg PRN Q6HRS PRN IVP NAUSEA/VOMITING; Start 07/08/20 at 11:30 Al Hydroxide/Mg Hydroxide (Mylanta Plus Xs) 30 ml PRN Q3HRS PRN PO HEARTBURN / GAS; Start 07/08/20 at 11:30 Calcium Carbonate/ Glycine (Tums) 500 mg PRN Q3HRS PRN PO UPSET STOMACH; Start 07/08/20 at 11:30 Zolpidem Tartrate (Ambien) 5 mg PRN QHS PRN PO INSOMNIA, MAY REPEAT IN 1HR; Start 07/08/20 at 11:30 Info (Non-Icu Electrolyte Protocol) 1 ea PRN DAILY PRN MC SEE COMMENTS; Start 07/08/20 at 11:30 Oxycodone HCl (Roxicodone) 5 mg PRN Q3HRS PRN PO BREAKTHROUGH PAIN; Start 07/08/20 at 11:30 Morphine Sulfate (Morphine Sulfate) 1 mg PRN Q1HR PRN IV PAIN; Start 07/08/20 at 11:30 Acetaminophen/ Hydrocodone Bitart (Lortab 5/325) 1 tab PRN Q4HRS PRN PO MILD PAIN 1-3 Last administered on 07/09/20at 08:29; Start 07/08/20 at 11:30 Acetaminophen (Tylenol) 650 mg PRN Q6HRS PRN PO Headaches, Temp > 101.5F; Start 07/08/20 at 11:30 Senna/Docusate Sodium (Senna Plus) 1 tab BID PO Last administered on 07/09/20at 08:23; Start 07/08/20 at 21:00 Magnesium Hydroxide (Milk Of Magnesia) 2,400 mg PRN Q12HR PRN PO CONSTIPATION; Start 07/08/20 at 11:30 Lactulose (Lactulose) 20 gm PRN Q12HR PRN PO CONSTIPATION, 2ND CHOICE; Start 07/08/20 at 11:30 Bisacodyl (Dulcolax Supp) 10 mg PRN DAILY PRN NE CONSTIPATION; Start 07/08/20 at 11:30 Enoxaparin Sodium (Lovenox 40mg Syringe) 40 mg BID SQ Last administered on 07/09/20at 08:30; Start 07/08/20 at 12:30 Insulin Glargine (Lantus Syringe) 35 unit QHS SQ Last administered on 07/08/20at 21:33; Start 07/08/20 at 21:00; Stop 07/09/20 at 08:03; Status DC Atorvastatin Calcium (Lipitor) 10 mg QHS PO Last administered on 07/08/20at 21:29; Start 07/08/20 at 21:00 Ascorbic Acid (Vitamin C) 500 mg TID PO Last administered on 07/09/20 08:24; Start 07/08/20 at 14:00 Vitamin D (Vitamin D3) 2,000 unit DAILY PO Last administered on 07/09/20at 08:23; Start 07/09/20 at 09:00 Zinc Sulfate (Orazinc) 220 mg DAILY PO Last administered on 07/09/20at 08:23; Start 07/08/20 at 12:30 Methylprednisolone Sodium Succinate (SOLU-Medrol 40MG VIAL) 40 mg Q8HRS IV Last administered on 07/09/20at 06:21; Start 07/08/20 at 14:00 Ceftriaxone Sodium (Rocephin) 1 gm Q24H IVP Last administered on 07/08/20at 21:32; Start 07/08/20 at 22:00 Azithromycin (Zithromax) 250 mg DAILY PO Last administered on 07/09/20at 08:24; Start 07/09/20 at 09:00; Stop 07/13/20 at 08:59 Insulin Glargine (Lantus Syringe) 35 unit 1X ONCE SQ ; Start 07/08/20 at 17:30; Stop 07/08/20 at 17:33; Status DC Insulin Human Lispro (HumaLOG) 12 units 1X ONCE SQ Last administered on 07/08/20at 23:50; Start 07/08/20 at 23:30; Stop 07/08/20 at 23:32; Status DC Insulin Glargine (Lantus Syringe) 23 unit BID SQ Last administered on 07/09/20at 09:30; Start 07/09/20 at 09:00 Active Scripts Active Reported Glimepiride 2 Mg Tablet Unknown Dose PO DAILY Metformin Hcl 1,000 Mg Tablet 1,000 Mg PO BIDWMEALS Levemir (Insulin Detemir) 100 Unit/1 Ml Vial 35 Unit SQ DAILY Pravastatin Sodium 40 Mg Tablet 40 Mg PO DAILY Vitals/I & O Vital Sign - Last 24 Hours 07/08/20 07/08/20 07/08/20 07/08/20 11:35 13:22 14:34 15:09 Temp 98.4 99.1 98.4 99.1 Pulse 102 110 Resp 24 28 B/P (MAP) 120/77 (91) 102/67 (79) Pulse Ox 93 92 92 91 O2 Delivery Nasal Cannula Nasal Cannula Nasal Cannula Nasal Cannula O2 Flow Rate 2.0 2.0 2.0 2.0 07/08/20 07/08/20 07/08/20 07/08/20 19:00 20:00 21:59 23:00 Temp 98.5 98.6 98.5 98.6 Pulse 95 88 Resp 18 18 B/P (MAP) 101/66 (78) 129/75 (93) Pulse Ox 91 91 91 O2 Delivery Nasal Cannula Nasal Cannula Nasal Cannula Nasal Cannula O2 Flow Rate 2.0 2.0 2.0 2.0 07/09/20 07/09/20 07/09/20 07/09/20 03:00 07:00 08:29 09:30 Temp 98.6 97.3 98.6 97.3 Pulse 83 82 Resp 20 18 22 20 B/P (MAP) 135/73 (93) 119/73 (88) Pulse Ox 93 94 94 94 O2 Delivery Nasal Cannula Room Air Nasal Cannula Nasal Cannula O2 Flow Rate 2.0 4.0 4.0 07/09/20 11:00 Temp 97.2 97.2 Pulse 84 Resp 18 B/P (MAP) 113/66 (82) Pulse Ox 92 O2 Delivery Nasal Cannula O2 Flow Rate 4.0 Intake and Output 07/08/20 07/08/20 07/09/20 15:00 23:00 07:00 Intake Total 700 ml 100 ml 0 ml Balance 700 ml 100 ml 0 ml Justicifation of Admission Dx: Justifications for Admission: Justification of Admission Dx: Yes Aspiration Pneumonia: Hypoxemia SUKHDEV GUERIN MD Jul 09, 2020 11:27
[2020-07-09] MEDS ORDERED: INSULIN LISPRO 300 UNITS/3 ML VIAL. SQ SCH (12:30)
--- NOTE | 2020-07-09 13:06 | NUR ---
The patient's blood sugar pre-meals were elevated, Dr. Carey updated of the trend at 1215. Received order for additional insulin dose. We will continue to monitor.
[2020-07-09] MEDS ORDERED: INSULIN LISPRO 300 UNITS/3 ML VIAL. SQ ONE (13:15)
--- NOTE | 2020-07-09 14:38 | NUR ---
SW following for discharge planning. Spoke with RN and reviewed chart. Pt now requiring 4l 02. Pt remains on IV abx. SW following.
[2020-07-09 15:00] VITALS: BP 119/77
[2020-07-09 19:00] VITALS: BP 113/69
[2020-07-09] MEDS: ATORVASTATIN CALCIUM 10 MG TABLET. PO SCH (20:49)
[2020-07-09] MEDS: ZOLPIDEM 5 MG TABLET. PO PRN (20:49)
[2020-07-09] MEDS: LACTOBACILLUS RHAMNOSUS GG 1 CAPSULE. PO SCH (20:49)
[2020-07-09] MEDS: cefTRIAXone IV Push 1 GM VIAL. IVP SCH (20:52)
[2020-07-09 23:00] VITALS: BP 120/67
[2020-07-10 03:00] VITALS: BP 128/73
[2020-07-10] MEDS: BENZONATATE 100 MG CAPSULE. PO PRN ×2 (06:14→20:30)
[2020-07-10] MEDS: methylPREDNISolone SOD SUCC PF 40 MG/ML VIAL. IV SCH ×3 (06:14→20:30)
[2020-07-10 07:00] VITALS: BP 124/75
[2020-07-10] MEDS: ENOXAPARIN 40 MG/0.4 ML SYRINGE. SQ SCH ×2 (08:17→20:30)
[2020-07-10] MEDS: ASCORBIC ACID 500 MG TABLET PO SCH ×3 (08:18→20:30)
[2020-07-10] MEDS: AZITHROMYCIN 250 MG TABLET. PO SCH (08:18)
[2020-07-10] MEDS: CHOLECALCIFEROL (VITAMIN D3) 1,000 UNIT TABLET PO SCH (08:18)
[2020-07-10] MEDS: ZINC SULFATE 220 MG CAPSULE. PO SCH (08:18)
[2020-07-10] MEDS: HYDROcodone/APAP 5/325MG 1 TAB TABLET PO PRN ×3 (08:18→20:29)
[2020-07-10] MEDS: LACTOBACILLUS RHAMNOSUS GG 1 CAPSULE. PO SCH ×2 (08:18→20:30)
[2020-07-10] MEDS: SENNOSIDES/DOCUSATE 8.6/50MG TABLET. PO SCH ×2 (08:18→20:30)
[2020-07-10] MEDS: INSULIN GLARGINE SYRINGE. SQ SCH ×2 (08:19→20:33)
[2020-07-10] MEDS: INSULIN LISPRO 300 UNITS/3 ML VIAL. SQ SCH ×3 (08:20→17:26)
[2020-07-10 11:00] VITALS: BP 132/77
[2020-07-10] MEDS ORDERED: INSULIN LISPRO 300 UNITS/3 ML VIAL. SQ ONE (11:30)
--- NOTE | 2020-07-10 11:45 | NUR ---
SW following for discharge planning. Spoke with RN and reviewed chart. Pt 02 increased to 5l. Pt COVID positive. SW following. Addendum: 07/15/20 at 1350 by ANDRES JEFF SW SW following for discharge planning. Spoke with RN and reviewed chart. Pt to discharge home today, self-care. Pt on room air. 6 min walk done and no 02 needed on discharge. No further SW needs at this time.
--- NOTE | 2020-07-10 13:12 | PDOC ---
PROGRESS NOTES Date of Service: DATE: 07/10/20 TIME: 13:11 Chief Complaint Chief Complaint Assessment/Plan COVID-19 infection Diabetes mellitus type 2 insulin requiring Uncontrolled diabetes secondary to steroid Hypertension Dyslipidemia Overweight with a BMI of 27 Plan Solu-Medrol Insulin for hyperglycemia We will start lispro if the patient has good oral intake Vitamin C&D Zinc Monitor oxygen requirements DVT prophylaxis with Lovenox Further recommendations based on the clinical course History of Present Illness History of Present Illness History of Present Illness Patient is a 50-year-old female with past medical history of diabetes and hypertension dyslipidemia who was in her usual state of health until last week when her unfortunately was diagnosed with Covid. He is admitted to our institution as well and got quite sick and requiring oxygen reason why he was brought to the emergency department and the patient's also has worsen her condition. We have been asked to admit for supportive measures. The patient at the time my evaluation is in no apparent distress feels better compared to admission. She does not present severe dyspnea she denies any headaches no blurred vision no dysphagia odynophagia no focal neurological deficits no chest pain no palpitation no abdominal pain no nausea vomiting or diarrhea has been reported. Plan of care has been explained detail and all of her concerns were addressed to the best of my abilities 07/09: No acute events reported overnight, case discussed with nursing staff patient in no acute distress no complaints during my visit 07/10: No acute events reported overnight, patient seems to be a little better compared to yesterday respiratory status has remained stable complaints of chest discomfort due to coughing effort reassurance provided all concerns addressed to the best of my abilities Vitals Vitals Vital Signs Date Time Temp Pulse Resp B/P (MAP) Pulse Ox O2 Delivery O2 Flow Rate FiO2 07/10/20 11:00 97.9 85 25 132/77 (95) 93 Nasal Cannula 5.0 97.9 Physical Exam General: Alert, Oriented X3, Cooperative, No acute distress Heart: Regular rate, Normal S1, Normal S2 Lungs: Clear Abdomen: Normal bowel sounds, Soft, No tenderness Extremities: No clubbing, No cyanosis Skin: No rashes Labs LABS Laboratory Tests Test 07/09/20 16:45 07/09/20 19:55 07/10/20 07:30 07/10/20 10:27 Glucose (Fingerstick) 342 mg/dL (70-99) 473 mg/dL (70-99) 381 mg/dL (70-99) 404 mg/dL (70-99) Assessment and Plan Assessmemt and Plan Problems Medical Problems: (1) Bilateral pneumonia Status: Acute (2) Community acquired pneumonia Status: Acute (3) COVID-19 Status: Acute (4) Hypoxia Status: Acute (5) Poorly controlled diabetes mellitus Status: Acute Comment Review of Relevant I have reviewed the following items bird (where applicable) has been applied. Labs Laboratory Tests Test 07/08/20 16:41 07/08/20 19:06 07/09/20 07:12 07/09/20 07:19 Glucose (Fingerstick) 406 mg/dL (70-99) 489 mg/dL (70-99) 369 mg/dL (70-99) White Blood Count 8.5 x10^3/uL (4.0-11.0) Red Blood Count 4.65 x10^6/uL (3.50-5.40) Hemoglobin 14.1 g/dL (12.0-15.5) Hematocrit 41.0 % (36.0-47.0) Mean Corpuscular Volume 88 fL (79-100) Mean Corpuscular Hemoglobin 30 pg (25-35) Mean Corpuscular Hemoglobin Concent 34 g/dL (31-37) Red Cell Distribution Width 12.9 % (11.5-14.5) Platelet Count 369 x10^3/uL (140-400) Neutrophils (%) (Auto) 85 % (31-73) Lymphocytes (%) (Auto) 9 % (24-48) Monocytes (%) (Auto) 7 % (0-9) Eosinophils (%) (Auto) 0 % (0-3) Basophils (%) (Auto) 0 % (0-3) Neutrophils # (Auto) 7.2 x10^3/uL (1.8-7.7) Lymphocytes # (Auto) 0.7 x10^3/uL (1.0-4.8) Monocytes # (Auto) 0.6 x10^3/uL (0.0-1.1) Eosinophils # (Auto) 0.0 x10^3/uL (0.0-0.7) Basophils # (Auto) 0.0 x10^3/uL (0.0-0.2) Sodium Level 138 mmol/L (136-145) Potassium Level 4.3 mmol/L (3.5-5.1) Chloride Level 99 mmol/L (98-107) Carbon Dioxide Level 27 mmol/L (21-32) Anion Gap 12 (6-14) Blood Urea Nitrogen 27 mg/dL (7-20) Creatinine 1.0 mg/dL (0.6-1.0) Estimated GFR (Cockcroft-Gault) 58.9 Glucose Level 364 mg/dL (70-99) Calcium Level 9.8 mg/dL (8.5-10.1) Phosphorus Level 3.9 mg/dL (2.6-4.7) Magnesium Level 2.4 mg/dL (1.8-2.4) Ferritin 454 ng/mL (8-252) Lactate Dehydrogenase 208 U/L (81-234) Procalcitonin < 0.10 ng/mL (0.00-0.10) Test 07/09/20 10:13 07/09/20 12:11 07/09/20 16:45 07/09/20 19:55 Glucose (Fingerstick) 577 mg/dL (70-99) 464 mg/dL (70-99) 342 mg/dL (70-99) 473 mg/dL (70-99) Test 07/10/20 07:30 07/10/20 10:27 Glucose (Fingerstick) 381 mg/dL (70-99) 404 mg/dL (70-99) Laboratory Tests Test 07/09/20 16:45 07/09/20 19:55 07/10/20 07:30 07/10/20 10:27 Glucose (Fingerstick) 342 mg/dL (70-99) 473 mg/dL (70-99) 381 mg/dL (70-99) 404 mg/dL (70-99) Microbiology 07/07/20 Blood Culture - Preliminary, Resulted NO GROWTH AFTER 2 DAYS Medications Current Medications Dexamethasone Sodium Phosphate (Decadron) 10 mg 1X ONCE IV Last administered on 07/08/20at 00:52; Start 07/07/20 at 23:45; Stop 07/07/20 at 23:46; Status DC Azithromycin 250 ml @ 250 mls/hr 1X ONCE IV Last administered on 07/08/20at 00:51; Start 07/07/20 at 23:45; Stop 07/08/20 at 00:44; Status DC Ceftriaxone Sodium (Rocephin) 1 gm 1X ONCE IVP Last administered on 07/08/20at 00:51; Start 07/07/20 at 23:45; Stop 07/07/20 at 23:46; Status DC Iohexol (Omnipaque 350 Mg/ml) 75 ml 1X ONCE IV Last administered on 07/07/20at 00:15; Start 07/07/20 at 23:45; Stop 07/07/20 at 23:46; Status DC Info (CONTRAST GIVEN -- Rx MONITORING) 1 each PRN DAILY PRN MC SEE COMMENTS; Start 07/07/20 at 23:45; Stop 07/09/20 at 23:44; Status DC Sodium Chloride 1,000 ml @ 1,000 mls/hr 1X ONCE IV Last administered on 07/08/20at 01:56; Start 07/08/20 at 02:00; Stop 07/08/20 at 02:59; Status DC Insulin Human Regular (HumuLIN R VIAL) 5 unit 1X ONCE IV Last administered on 07/08/20at 01:56; Start 07/08/20 at 02:00; Stop 07/08/20 at 02:01; Status DC Ondansetron HCl (Zofran) 4 mg PRN Q8HRS PRN IV NAUSEA/VOMITING 1ST CHOICE; Start 07/08/20 at 01:45; Stop 07/08/20 at 12:09; Status DC Fentanyl Citrate (Fentanyl 2ml Vial) 50 mcg PRN Q4HRS PRN IV SEVERE PAIN 7-10 Last administered on 07/08/20at 05:31; Start 07/08/20 at 01:45; Stop 07/09/20 at 01:44; Status DC Acetaminophen (Tylenol) 650 mg PRN Q4HRS PRN PO FEVER > 100.3'F Last administered on 07/08/20at 05:31; Start 07/08/20 at 01:45; Stop 07/09/20 at 01:44; Status DC Benzonatate (Tessalon Perle) 100 mg PRN TID PRN PO COUGH Last administered on 07/10/20at 06:14; Start 07/08/20 at 03:30 Insulin Glargine (Lantus Syringe) 12 unit BID SQ Last administered on 07/08/20at 11:42; Start 07/08/20 at 12:00; Stop 07/08/20 at 12:13; Status DC Insulin Human Lispro (HumaLOG) 0-7 UNITS TIDWMEALS SQ Last administered on 07/10/20at 11:44; Start 07/08/20 at 12:00 Dextrose (Dextrose 50%-Water Syringe) 12.5 gm PRN Q15MIN PRN IV SEE COMMENTS; Start 07/08/20 at 11:30 Ondansetron HCl (Zofran) 4 mg PRN Q6HRS PRN IVP NAUSEA/VOMITING; Start 07/08/20 at 11:30 Al Hydroxide/Mg Hydroxide (Mylanta Plus Xs) 30 ml PRN Q3HRS PRN PO HEARTBURN / GAS; Start 07/08/20 at 11:30 Calcium Carbonate/ Glycine (Tums) 500 mg PRN Q3HRS PRN PO UPSET STOMACH; Start 07/08/20 at 11:30 Zolpidem Tartrate (Ambien) 5 mg PRN QHS PRN PO INSOMNIA, MAY REPEAT IN 1HR Last administered on 07/09/20at 20:49; Start 07/08/20 at 11:30 Info (Non-Icu Electrolyte Protocol) 1 ea PRN DAILY PRN MC SEE COMMENTS; Start 07/08/20 at 11:30 Oxycodone HCl (Roxicodone) 5 mg PRN Q3HRS PRN PO BREAKTHROUGH PAIN; Start 07/08/20 at 11:30 Morphine Sulfate (Morphine Sulfate) 1 mg PRN Q1HR PRN IV PAIN; Start 07/08/20 at 11:30 Acetaminophen/ Hydrocodone Bitart (Lortab 5/325) 1 tab PRN Q4HRS PRN PO MILD PAIN 1-3 Last administered on 07/10/20at 08:18; Start 07/08/20 at 11:30 Acetaminophen (Tylenol) 650 mg PRN Q6HRS PRN PO Headaches, Temp > 101.5F; Start 07/08/20 at 11:30 Senna/Docusate Sodium (Senna Plus) 1 tab BID PO Last administered on 07/10/20at 08:18; Start 07/08/20 at 21:00 Magnesium Hydroxide (Milk Of Magnesia) 2,400 mg PRN Q12HR PRN PO CONSTIPATION; Start 07/08/20 at 11:30 Lactulose (Lactulose) 20 gm PRN Q12HR PRN PO CONSTIPATION, 2ND CHOICE Last administered on 07/10/20at 08:17; Start 07/08/20 at 11:30 Bisacodyl (Dulcolax Supp) 10 mg PRN DAILY PRN [place] CONSTIPATION; Start 07/08/20 at 11:30 Enoxaparin Sodium (Lovenox 40mg Syringe) 40 mg BID SQ Last administered on 07/10/20at 08:17; Start 07/08/20 at 12:30 Insulin Glargine (Lantus Syringe) 35 unit QHS SQ Last administered on 07/08/20at 21:33; Start 07/08/20 at 21:00; Stop 07/09/20 at 08:03; Status DC Atorvastatin Calcium (Lipitor) 10 mg QHS PO Last administered on 07/09/20at 20:49; Start 07/08/20 at 21:00 Ascorbic Acid (Vitamin C) 500 mg TID PO Last administered on 07/10/20at 08:18; Start 07/08/20 at 14:00 Vitamin D (Vitamin D3) 2,000 unit DAILY PO Last administered on 07/10/20 08:18; Start 07/09/20 at 09:00 Zinc Sulfate (Orazinc) 220 mg DAILY PO Last administered on 07/10/20at 08:18; Start 07/08/20 at 12:30 Methylprednisolone Sodium Succinate (SOLU-Medrol 40MG VIAL) 40 mg Q8HRS IV Last administered on 07/10/20at 06:14; Start 07/08/20 at 14:00 Ceftriaxone Sodium (Rocephin) 1 gm Q24H IVP Last administered on 07/09/20at 20:52; Start 07/08/20 at 22:00; Stop 07/10/20 at 13:00; Status DC Azithromycin (Zithromax) 250 mg DAILY PO Last administered on 07/10/20at 08:18; Start 07/09/20 at 09:00; Stop 07/13/20 at 08:59 Insulin Glargine (Lantus Syringe) 35 unit 1X ONCE SQ ; Start 07/08/20 at 17:30; Stop 07/08/20 at 17:33; Status DC Insulin Human Lispro (HumaLOG) 12 units 1X ONCE SQ Last administered on 07/08/20at 23:50; Start 07/08/20 at 23:30; Stop 07/08/20 at 23:32; Status DC Insulin Glargine (Lantus Syringe) 23 unit BID SQ Last administered on 07/10/20at 08:19; Start 07/09/20 at 09:00 Insulin Human Lispro (HumaLOG) 14 units 1X SQ ; Start 07/09/20 at 12:30; Status Cancel Insulin Human Lispro (HumaLOG) 14 units 1X ONCE SQ Last administered on 07/09/20at 12:50; Start 07/09/20 at 13:15; Stop 07/09/20 at 13:16; Status DC Lactobacillus Rhamnosus (Culturelle) 1 cap BID PO Last administered on 07/10/20at 08:18; Start 07/09/20 at 21:00 Insulin Human Lispro (HumaLOG) 7 units 1X ONCE SQ Last administered on 07/10/20at 11:43; Start 07/10/20 at 11:30; Stop 07/10/20 at 11:31; Status DC Cefdinir (Omnicef) 300 mg BID PO ; Start 07/10/20 at 13:00 Active Scripts Active Reported Glimepiride 2 Mg Tablet Unknown Dose PO DAILY Metformin Hcl 1,000 Mg Tablet 1,000 Mg PO BIDWMEALS Levemir (Insulin Detemir) 100 Unit/1 Ml Vial 35 Unit SQ DAILY Pravastatin Sodium 40 Mg Tablet 40 Mg PO DAILY Vitals/I & O Vital Sign - Last 24 Hours 07/09/20 07/09/20 07/09/20 07/09/20 15:00 17:03 18:10 19:00 Temp 97.9 98.3 97.9 98.3 Pulse 85 74 Resp 18 22 22 18 B/P (MAP) 119/77 (91) 113/69 (84) Pulse Ox 90 90 90 97 O2 Delivery Room Air Nasal Cannula Nasal Cannula Nasal Cannula O2 Flow Rate 4.0 4.0 4.0 07/09/20 07/09/20 07/09/20 07/09/20 20:10 20:50 21:50 23:00 Temp 98.0 98.0 Pulse 66 Resp 18 B/P (MAP) 120/67 (84) Pulse Ox 90 90 93 O2 Delivery Nasal Cannula Nasal Cannula Nasal Cannula Nasal Cannula O2 Flow Rate 2.0 4.0 4.0 4.0 07/10/20 07/10/20 07/10/20 07/10/20 03:00 07:00 08:00 08:18 Temp 98.3 96.4 98.3 96.4 Pulse 68 73 Resp 20 25 B/P (MAP) 128/73 (91) 124/75 (91) Pulse Ox 93 94 O2 Delivery Nasal Cannula Nasal Cannula Nasal Cannula Nasal Cannula O2 Flow Rate 4.0 6.0 4.0 4.0 07/10/20 07/10/20 09:20 11:00 Temp 97.9 97.9 Pulse 85 Resp 25 B/P (MAP) 132/77 (95) Pulse Ox 93 O2 Delivery Nasal Cannula Nasal Cannula O2 Flow Rate 4.0 5.0 Intake and Output 07/09/20 07/09/20 07/10/20 15:00 23:00 07:00 Intake Total 600 ml 600 ml 440 ml Balance 600 ml 600 ml 440 ml Justicifation of Admission Dx: Justifications for Admission: Justification of Admission Dx: Yes Aspiration Pneumonia: Hypoxemia SUKHDEV GUERIN MD Jul 10, 2020 13:12
[2020-07-10] MEDS: CEFDINIR 300 MG CAPSULE PO SCH ×2 (13:55→20:30)
[2020-07-10 15:00] VITALS: BP_SYST 111; BP_SYST 170; BP_DIAS 60; BP_DIAS 79
[2020-07-10 19:55] VITALS: BP 124/69
[2020-07-10] MEDS: ATORVASTATIN CALCIUM 10 MG TABLET. PO SCH (20:30)
[2020-07-10] MEDS: ZOLPIDEM 5 MG TABLET. PO PRN (20:45)
[2020-07-10 23:08] VITALS: BP 111/70
[2020-07-11 03:43] VITALS: BP 109/68
[2020-07-11] MEDS: HYDROcodone/APAP 5/325MG 1 TAB TABLET PO PRN ×3 (04:45→14:57)
[2020-07-11] MEDS: BENZONATATE 100 MG CAPSULE. PO PRN ×2 (04:51→20:24)
[2020-07-11] MEDS: methylPREDNISolone SOD SUCC PF 40 MG/ML VIAL. IV SCH ×3 (04:52→23:37)
[2020-07-11 07:00] VITALS: BP 111/67
[2020-07-11] MEDS: INSULIN LISPRO 300 UNITS/3 ML VIAL. SQ SCH ×3 (08:00→17:37)
[2020-07-11] MEDS: AZITHROMYCIN 250 MG TABLET. PO SCH (08:13)
[2020-07-11] MEDS: CHOLECALCIFEROL (VITAMIN D3) 1,000 UNIT TABLET PO SCH (08:13)
[2020-07-11] MEDS: LACTOBACILLUS RHAMNOSUS GG 1 CAPSULE. PO SCH ×2 (08:13→20:24)
[2020-07-11] MEDS: CEFDINIR 300 MG CAPSULE PO SCH ×2 (08:13→20:24)
[2020-07-11] MEDS: SENNOSIDES/DOCUSATE 8.6/50MG TABLET. PO SCH ×2 (08:13→20:24)
[2020-07-11] MEDS: ZINC SULFATE 220 MG CAPSULE. PO SCH (08:13)
[2020-07-11] MEDS: ENOXAPARIN 40 MG/0.4 ML SYRINGE. SQ SCH ×2 (08:14→20:24)
[2020-07-11] MEDS: ASCORBIC ACID 500 MG TABLET PO SCH ×3 (08:14→20:24)
[2020-07-11] MEDS: INSULIN GLARGINE SYRINGE. SQ SCH ×2 (08:40→20:25)
[2020-07-11 11:00] VITALS: BP 118/78
--- NOTE | 2020-07-11 11:03 | PDOC ---
PROGRESS NOTES Date of Service: DATE: 07/11/20 TIME: 11:02 Chief Complaint Chief Complaint Assessment/Plan COVID-19 infection Diabetes mellitus type 2 insulin requiring Uncontrolled diabetes secondary to steroid Hypertension Dyslipidemia Overweight with a BMI of 27 Plan Solu-Medrol Insulin for hyperglycemia We will start lispro if the patient has good oral intake Vitamin C&D Zinc Monitor oxygen requirements DVT prophylaxis with Lovenox Further recommendations based on the clinical course History of Present Illness History of Present Illness History of Present Illness Patient is a 50-year-old female with past medical history of diabetes and hypertension dyslipidemia who was in her usual state of health until last week when her unfortunately was diagnosed with Covid. He is admitted to our institution as well and got quite sick and requiring oxygen reason why he was brought to the emergency department and the patient's also has worsen her condition. We have been asked to admit for supportive measures. The patient at the time my evaluation is in no apparent distress feels better compared to admission. She does not present severe dyspnea she denies any headaches no blurred vision no dysphagia odynophagia no focal neurological deficits no chest pain no palpitation no abdominal pain no nausea vomiting or diarrhea has been reported. Plan of care has been explained detail and all of her concerns were addressed to the best of my abilities 2/3: No acute events reported overnight, case discussed with nursing staff patient in no acute distress no complaints during my visit 2/4: No acute events reported overnight, patient seems to be a little better compared to yesterday respiratory status has remained stable complaints of chest discomfort due to coughing effort reassurance provided all concerns addressed to the best of my abilities 5: Patient seems to be doing better still having headache and also chest discomfort due to the coughing effort. She had constipation yesterday but this has since resolved after providing her with senna S and MiraLAX. No new complaints Vitals Vitals Vital Signs Date Time Temp Pulse Resp B/P (MAP) Pulse Ox O2 Delivery O2 Flow Rate FiO2 07/11/20 10:44 18 Nasal Cannula 4.0 07/11/20 07:00 95.6 57 111/67 (82) 94 95.6 Physical Exam General: Alert, Oriented X3, Cooperative, No acute distress Heart: Regular rate, Normal S1, Normal S2 Lungs: Clear Abdomen: Normal bowel sounds, Soft, No tenderness Extremities: No clubbing, No cyanosis Skin: No rashes Labs LABS Laboratory Tests Test 07/10/20 16:52 07/10/20 20:33 07/11/20 08:00 Glucose (Fingerstick) 281 mg/dL (70-99) 439 mg/dL (70-99) 336 mg/dL (70-99) Assessment and Plan Assessmemt and Plan Problems Medical Problems: (1) Bilateral pneumonia Status: Acute (2) Community acquired pneumonia Status: Acute (3) COVID-19 Status: Acute (4) Hypoxia Status: Acute (5) Poorly controlled diabetes mellitus Status: Acute Comment Review of Relevant I have reviewed the following items bird (where applicable) has been applied. Labs Laboratory Tests Test 07/09/20 12:11 07/09/20 16:45 07/09/20 19:55 07/10/20 07:30 Glucose (Fingerstick) 464 mg/dL (70-99) 342 mg/dL (70-99) 473 mg/dL (70-99) 381 mg/dL (70-99) Test 07/10/20 10:27 07/10/20 16:52 07/10/20 20:33 07/11/20 08:00 Glucose (Fingerstick) 404 mg/dL (70-99) 281 mg/dL (70-99) 439 mg/dL (70-99) 336 mg/dL (70-99) Laboratory Tests Test 07/10/20 16:52 07/10/20 20:33 07/11/20 08:00 Glucose (Fingerstick) 281 mg/dL (70-99) 439 mg/dL (70-99) 336 mg/dL (70-99) Microbiology 07/07/20 Blood Culture - Preliminary, Resulted NO GROWTH AFTER 3 DAYS Medications Current Medications Dexamethasone Sodium Phosphate (Decadron) 10 mg 1X ONCE IV Last administered on 07/08/20at 00:52; Start 07/07/20 at 23:45; Stop 07/07/20 at 23:46; Status DC Azithromycin 250 ml @ 250 mls/hr 1X ONCE IV Last administered on 07/08/20at 00:51; Start 07/07/20 at 23:45; Stop 07/08/20 at 00:44; Status DC Ceftriaxone Sodium (Rocephin) 1 gm 1X ONCE IVP Last administered on 07/08/20at 00:51; Start 07/07/20 at 23:45; Stop 07/07/20 at 23:46; Status DC Iohexol (Omnipaque 350 Mg/ml) 75 ml 1X ONCE IV Last administered on 07/07/20at 00:15; Start 07/07/20 at 23:45; Stop 07/07/20 at 23:46; Status DC Info (CONTRAST GIVEN -- Rx MONITORING) 1 each PRN DAILY PRN MC SEE COMMENTS; Start 07/07/20 at 23:45; Stop 07/09/20 at 23:44; Status DC Sodium Chloride 1,000 ml @ 1,000 mls/hr 1X ONCE IV Last administered on 07/08/20at 01:56; Start 07/08/20 at 02:00; Stop 07/08/20 at 02:59; Status DC Insulin Human Regular (HumuLIN R VIAL) 5 unit 1X ONCE IV Last administered on 07/08/20at 01:56; Start 07/08/20 at 02:00; Stop 07/08/20 at 02:01; Status DC Ondansetron HCl (Zofran) 4 mg PRN Q8HRS PRN IV NAUSEA/VOMITING 1ST CHOICE; Start 07/08/20 at 01:45; Stop 07/08/20 at 12:09; Status DC Fentanyl Citrate (Fentanyl 2ml Vial) 50 mcg PRN Q4HRS PRN IV SEVERE PAIN 7-10 Last administered on 07/08/20at 05:31; Start 07/08/20 at 01:45; Stop 07/09/20 at 01:44; Status DC Acetaminophen (Tylenol) 650 mg PRN Q4HRS PRN PO FEVER > 100.3'F Last administered on 07/08/20at 05:31; Start 07/08/20 at 01:45; Stop 07/09/20 at 01:44; Status DC Benzonatate (Tessalon Perle) 100 mg PRN TID PRN PO COUGH Last administered on 07/11/20at 04:51; Start 07/08/20 at 03:30 Insulin Glargine (Lantus Syringe) 12 unit BID SQ Last administered on 07/08/20at 11:42; Start 07/08/20 at 12:00; Stop 07/08/20 at 12:13; Status DC Insulin Human Lispro (HumaLOG) 0-7 UNITS TIDWMEALS SQ Last administered on 07/11/20at 08:00; Start 07/08/20 at 12:00 Dextrose (Dextrose 50%-Water Syringe) 12.5 gm PRN Q15MIN PRN IV SEE COMMENTS; Start 07/08/20 at 11:30 Ondansetron HCl (Zofran) 4 mg PRN Q6HRS PRN IVP NAUSEA/VOMITING; Start 07/08/20 at 11:30 Al Hydroxide/Mg Hydroxide (Mylanta Plus Xs) 30 ml PRN Q3HRS PRN PO HEARTBURN / GAS; Start 07/08/20 at 11:30 Calcium Carbonate/ Glycine (Tums) 500 mg PRN Q3HRS PRN PO UPSET STOMACH; Start 07/08/20 at 11:30 Zolpidem Tartrate (Ambien) 5 mg PRN QHS PRN PO INSOMNIA, MAY REPEAT IN 1HR Last administered on 07/10/20at 20:45; Start 07/08/20 at 11:30 Info (Non-Icu Electrolyte Protocol) 1 ea PRN DAILY PRN MC SEE COMMENTS; Start 07/08/20 at 11:30 Oxycodone HCl (Roxicodone) 5 mg PRN Q3HRS PRN PO BREAKTHROUGH PAIN; Start 07/08/20 at 11:30 Morphine Sulfate (Morphine Sulfate) 1 mg PRN Q1HR PRN IV PAIN; Start 07/08/20 at 11:30 Acetaminophen/ Hydrocodone Bitart (Lortab 5/325) 1 tab PRN Q4HRS PRN PO MILD PAIN 1-3 Last administered on 07/11/20at 09:44; Start 07/08/20 at 11:30 Acetaminophen (Tylenol) 650 mg PRN Q6HRS PRN PO Headaches, Temp > 101.5F; Start 07/08/20 at 11:30 Senna/Docusate Sodium (Senna Plus) 1 tab BID PO Last administered on 07/11/20at 08:13; Start 07/08/20 at 21:00 Magnesium Hydroxide (Milk Of Magnesia) 2,400 mg PRN Q12HR PRN PO CONSTIPATION; Start 07/08/20 at 11:30 Lactulose (Lactulose) 20 gm PRN Q12HR PRN PO CONSTIPATION, 2ND CHOICE Last administered on 07/10/20 08:17; Start 07/08/20 at 11:30 Bisacodyl (Dulcolax Supp) 10 mg PRN DAILY PRN [place] CONSTIPATION; Start 07/08/20 at 11:30 Enoxaparin Sodium (Lovenox 40mg Syringe) 40 mg BID SQ Last administered on 07/11/20 08:14; Start 07/08/20 at 12:30 Insulin Glargine (Lantus Syringe) 35 unit QHS SQ Last administered on 07/08/20at 21:33; Start 07/08/20 at 21:00; Stop 07/09/20 at 08:03; Status DC Atorvastatin Calcium (Lipitor) 10 mg QHS PO Last administered on 07/10/20 20:30; Start 07/08/20 at 21:00 Ascorbic Acid (Vitamin C) 500 mg TID PO Last administered on 07/11/20 08:14; Start 07/08/20 at 14:00 Vitamin D (Vitamin D3) 2,000 unit DAILY PO Last administered on 07/11/20 08:13; Start 07/09/20 at 09:00 Zinc Sulfate (Orazinc) 220 mg DAILY PO Last administered on 07/11/20 08:13; Start 07/08/20 at 12:30 Methylprednisolone Sodium Succinate (SOLU-Medrol 40MG VIAL) 40 mg Q8HRS IV Last administered on 07/11/20 04:52; Start 07/08/20 at 14:00 Ceftriaxone Sodium (Rocephin) 1 gm Q24H IVP Last administered on 07/09/20 20:52; Start 07/08/20 at 22:00; Stop 07/10/20 at 13:00; Status DC Azithromycin (Zithromax) 250 mg DAILY PO Last administered on 07/11/20 08:13; Start 07/09/20 at 09:00; Stop 07/13/20 at 08:59 Insulin Glargine (Lantus Syringe) 35 unit 1X ONCE SQ ; Start 07/08/20 at 17:30; Stop 07/08/20 at 17:33; Status DC Insulin Human Lispro (HumaLOG) 12 units 1X ONCE SQ Last administered on 07/08/20at 23:50; Start 07/08/20 at 23:30; Stop 07/08/20 at 23:32; Status DC Insulin Glargine (Lantus Syringe) 23 unit BID SQ Last administered on 07/11/20at 08:40; Start 07/09/20 at 09:00 Insulin Human Lispro (HumaLOG) 14 units 1X SQ ; Start 07/09/20 at 12:30; Status Cancel Insulin Human Lispro (HumaLOG) 14 units 1X ONCE SQ Last administered on 07/09/20at 12:50; Start 07/09/20 at 13:15; Stop 07/09/20 at 13:16; Status DC Lactobacillus Rhamnosus (Culturelle) 1 cap BID PO Last administered on 07/11/20at 08:13; Start 07/09/20 at 21:00 Insulin Human Lispro (HumaLOG) 7 units 1X ONCE SQ Last administered on 07/10/20at 11:43; Start 07/10/20 at 11:30; Stop 07/10/20 at 11:31; Status DC Cefdinir (Omnicef) 300 mg BID PO Last administered on 07/11/20at 08:13; Start 07/10/20 at 13:00 Active Scripts Active Reported Glimepiride 2 Mg Tablet Unknown Dose PO DAILY Metformin Hcl 1,000 Mg Tablet 1,000 Mg PO BIDWMEALS Levemir (Insulin Detemir) 100 Unit/1 Ml Vial 35 Unit SQ DAILY Pravastatin Sodium 40 Mg Tablet 40 Mg PO DAILY Vitals/I & O Vital Sign - Last 24 Hours 07/10/20 07/10/20 07/10/20 07/10/20 14:40 15:00 15:40 19:55 Temp 98.0 98.8 98.0 98.8 Pulse 84 72 Resp 17 18 B/P (MAP) 170/79 (109) 124/69 (87) Pulse Ox 98 97 O2 Delivery Nasal Cannula Room Air Nasal Cannula Nasal Cannula O2 Flow Rate 4.0 4.0 6.0 07/10/20 07/10/20 07/10/20 07/10/20 20:10 20:29 21:29 23:08 Temp 98.3 98.3 Pulse 63 Resp 18 B/P (MAP) 111/70 (84) Pulse Ox 97 97 97 O2 Delivery Nasal Cannula Nasal Cannula Nasal Cannula Nasal Cannula O2 Flow Rate 4.0 4.0 4.0 07/11/20 07/11/20 07/11/20 07/11/20 03:43 07:00 08:00 09:44 Temp 98.1 95.6 98.1 95.6 Pulse 60 57 Resp 16 20 18 B/P (MAP) 109/68 (82) 111/67 (82) Pulse Ox 95 94 O2 Delivery Nasal Cannula Nasal Cannula Nasal Cannula Nasal Cannula O2 Flow Rate 6.0 6.0 6.0 4.0 07/11/20 10:44 Resp 18 O2 Delivery Nasal Cannula O2 Flow Rate 4.0 Intake and Output 07/10/20 07/10/20 07/11/20 15:00 23:00 07:00 Intake Total 500 ml 900 ml Output Total 700 ml Balance 500 ml 900 ml -700 ml Justicifation of Admission Dx: Justifications for Admission: Justification of Admission Dx: Yes Aspiration Pneumonia: Hypoxemia SUKHDEV GUERIN MD Jul 11, 2020 11:03
[2020-07-11 15:00] VITALS: BP 133/85
[2020-07-11] MEDS: oxyCODONE IR 5 MG TABLET PO PRN ×2 (17:41→23:37)
[2020-07-11 20:15] VITALS: BP 131/70
[2020-07-11] MEDS: ATORVASTATIN CALCIUM 10 MG TABLET. PO SCH (20:24)
[2020-07-11 23:45] VITALS: BP 132/90
[2020-07-12] MEDS: methylPREDNISolone SOD SUCC PF 40 MG/ML VIAL. IV SCH ×3 (05:36→22:27)
[2020-07-12] MEDS: BENZONATATE 100 MG CAPSULE. PO PRN ×2 (05:36→20:15)
[2020-07-12 05:40] VITALS: BP 108/72
[2020-07-12 07:00] VITALS: BP 131/77
[2020-07-12] MEDS: INSULIN LISPRO 300 UNITS/3 ML VIAL. SQ SCH ×6 (08:10→16:38)
[2020-07-12] MEDS: SENNOSIDES/DOCUSATE 8.6/50MG TABLET. PO SCH ×2 (08:11→20:14)
[2020-07-12] MEDS: ZINC SULFATE 220 MG CAPSULE. PO SCH (08:11)
[2020-07-12] MEDS: ENOXAPARIN 40 MG/0.4 ML SYRINGE. SQ SCH ×2 (08:11→20:15)
[2020-07-12] MEDS: AZITHROMYCIN 250 MG TABLET. PO SCH (08:11)
[2020-07-12] MEDS: LACTOBACILLUS RHAMNOSUS GG 1 CAPSULE. PO SCH ×2 (08:11→20:14)
[2020-07-12] MEDS: CHOLECALCIFEROL (VITAMIN D3) 1,000 UNIT TABLET PO SCH (08:11)
[2020-07-12] MEDS: CEFDINIR 300 MG CAPSULE PO SCH ×2 (08:11→20:14)
[2020-07-12] MEDS: ASCORBIC ACID 500 MG TABLET PO SCH ×3 (08:12→20:14)
[2020-07-12] MEDS: INSULIN GLARGINE SYRINGE. SQ SCH ×2 (08:35→20:41)
--- NOTE | 2020-07-12 09:17 | PDOC ---
PROGRESS NOTES Date of Service: DATE: 07/12/20 TIME: 09:15 Chief Complaint Chief Complaint Assessment/Plan COVID-19 infection Diabetes mellitus type 2 insulin requiring Uncontrolled diabetes secondary to steroid Hypertension Dyslipidemia Overweight with a BMI of 27 Plan Solu-Medrol Insulin for hyperglycemia start lispro and increase lantus for better glycemic control Vitamin C&D Zinc Monitor oxygen requirements DVT prophylaxis with Lovenox Further recommendations based on the clinical course History of Present Illness History of Present Illness History of Present Illness Patient is a 50-year-old female with past medical history of diabetes and hypertension dyslipidemia who was in her usual state of health until last week when her unfortunately was diagnosed with Covid. He is admitted to our institution as well and got quite sick and requiring oxygen reason why he was brought to the emergency department and the patient's also has worsen her condition. We have been asked to admit for supportive measures. The patient at the time my evaluation is in no apparent distress feels better compared to admission. She does not present severe dyspnea she denies any headaches no blurred vision no dysphagia odynophagia no focal neurological deficits no chest pain no palpitation no abdominal pain no nausea vomiting or diarrhea has been reported. Plan of care has been explained detail and all of her concerns were addressed to the best of my abilities 2/3: No acute events reported overnight, case discussed with nursing staff patient in no acute distress no complaints during my visit 2: No acute events reported overnight, patient seems to be a little better co mpared to yesterday respiratory status has remained stable complaints of chest discomfort due to coughing effort reassurance provided all concerns addressed to the best of my abilities 07/11: Patient seems to be doing better still having headache and also chest discomfort due to the coughing effort. She had constipation yesterday but this has since resolved after providing her with senna S and MiraLAX. No new complaints 07/12: No acute events reported overnight, case discussed with nursing staff patient in no acute distress no complaints during my visit Vitals Vitals Vital Signs Date Time Temp Pulse Resp B/P (MAP) Pulse Ox O2 Delivery O2 Flow Rate FiO2 07/12/20 08:00 Nasal Cannula 4.0 07/12/20 07:00 97.7 61 24 131/77 (95 93 97.7 Physical Exam General: Alert, Oriented X3, Cooperative, No acute distress Heart: Regular rate, Normal S1, Normal S2 Lungs: Clear Abdomen: Normal bowel sounds, Soft, No tenderness Extremities: No clubbing, No cyanosis Skin: No rashes Labs LABS Laboratory Tests Test 07/11/20 12:01 07/11/20 15:55 07/11/20 20:13 07/12/20 08:01 Glucose (Fingerstick) 317 mg/dL (70-99) 317 mg/dL (70-99) 383 mg/dL (70-99) 359 mg/dL (70-99) Review of Systems Review of Systems Review of systems pertinent as per HPI otherwise 14 point review of system is negative Assessment and Plan Assessmemt and Plan Problems Medical Problems: (1) Bilateral pneumonia Status: Acute (2) Community acquired pneumonia Status: Acute (3) COVID-19 Status: Acute (4) Hypoxia Status: Acute (5) Poorly controlled diabetes mellitus Status: Acute Comment Review of Relevant I have reviewed the following items bird (where applicable) has been applied. Labs Laboratory Tests Test 07/10/20 10:27 07/10/20 16:52 07/10/20 20:33 07/11/20 08:00 Glucose (Fingerstick) 404 mg/dL (70-99) 281 mg/dL (70-99) 439 mg/dL (70-99) 336 mg/dL (70-99) Test 07/11/20 12:01 07/11/20 15:55 07/11/20 20:13 07/12/20 08:01 Glucose (Fingerstick) 317 mg/dL (70-99) 317 mg/dL (70-99) 383 mg/dL (70-99) 359 mg/dL (70-99) Laboratory Tests Test 07/11/20 12:01 07/11/20 15:55 07/11/20 20:13 07/12/20 08:01 Glucose (Fingerstick) 317 mg/dL (70-99) 317 mg/dL (70-99) 383 mg/dL (70-99) 359 mg/dL (70-99) Microbiology 07/07/20 Blood Culture - Preliminary, Resulted NO GROWTH AFTER 4 DAYS Medications Current Medications Dexamethasone Sodium Phosphate (Decadron) 10 mg 1X ONCE IV Last administered on 07/08/20at 00:52; Start 07/07/20 at 23:45; Stop 07/07/20 at 23:46; Status DC Azithromycin 250 ml @ 250 mls/hr 1X ONCE IV Last administered on 07/08/20at 00:51; Start 07/07/20 at 23:45; Stop 07/08/20 at 00:44; Status DC Ceftriaxone Sodium (Rocephin) 1 gm 1X ONCE IVP Last administered on 07/08/20at 00:51; Start 07/07/20 at 23:45; Stop 07/07/20 at 23:46; Status DC Iohexol (Omnipaque 350 Mg/ml) 75 ml 1X ONCE IV Last administered on 07/07/20at 00:15; Start 07/07/20 at 23:45; Stop 07/07/20 at 23:46; Status DC Info (CONTRAST GIVEN -- Rx MONITORING) 1 each PRN DAILY PRN MC SEE COMMENTS; Start 07/07/20 at 23:45; Stop 07/09/20 at 23:44; Status DC Sodium Chloride 1,000 ml @ 1,000 mls/hr 1X ONCE IV Last administered on 07/08/20at 01:56; Start 07/08/20 at 02:00; Stop 07/08/20 at 02:59; Status DC Insulin Human Regular (HumuLIN R VIAL) 5 unit 1X ONCE IV Last administered on 07/08/20at 01:56; Start 07/08/20 at 02:00; Stop 07/08/20 at 02:01; Status DC Ondansetron HCl (Zofran) 4 mg PRN Q8HRS PRN IV NAUSEA/VOMITING 1ST CHOICE; Start 07/08/20 at 01:45; Stop 07/08/20 at 12:09; Status DC Fentanyl Citrate (Fentanyl 2ml Vial) 50 mcg PRN Q4HRS PRN IV SEVERE PAIN 7-10 Last administered on 07/08/20at 05:31; Start 07/08/20 at 01:45; Stop 07/09/20 at 01:44; Status DC Acetaminophen (Tylenol) 650 mg PRN Q4HRS PRN PO FEVER > 100.3'F Last administered on 07/08/20at 05:31; Start 07/08/20 at 01:45; Stop 07/09/20 at 01:44; Status DC Benzonatate (Tessalon Perle) 100 mg PRN TID PRN PO COUGH Last administered on 07/12/20at 05:36; Start 07/08/20 at 03:30 Insulin Glargine (Lantus Syringe) 12 unit BID SQ Last administered on 07/08/20at 11:42; Start 07/08/20 at 12:00; Stop 07/08/20 at 12:13; Status DC Insulin Human Lispro (HumaLOG) 0-7 UNITS TIDWMEALS SQ Last administered on 07/12/20at 08:10; Start 07/08/20 at 12:00 Dextrose (Dextrose 50%-Water Syringe) 12.5 gm PRN Q15MIN PRN IV SEE COMMENTS; Start 07/08/20 at 11:30 Ondansetron HCl (Zofran) 4 mg PRN Q6HRS PRN IVP NAUSEA/VOMITING; Start 07/08/20 at 11:30 Al Hydroxide/Mg Hydroxide (Mylanta Plus Xs) 30 ml PRN Q3HRS PRN PO HEARTBURN / GAS; Start 07/08/20 at 11:30 Calcium Carbonate/ Glycine (Tums) 500 mg PRN Q3HRS PRN PO UPSET STOMACH; Start 07/08/20 at 11:30 Zolpidem Tartrate (Ambien) 5 mg PRN QHS PRN PO INSOMNIA, MAY REPEAT IN 1HR Last administered on 07/10/20at 20:45; Start 07/08/20 at 11:30 Info (Non-Icu Electrolyte Protocol) 1 ea PRN DAILY PRN MC SEE COMMENTS; Start 07/08/20 at 11:30 Oxycodone HCl (Roxicodone) 5 mg PRN Q3HRS PRN PO BREAKTHROUGH PAIN Last administered on 07/11/20at 23:37; Start 07/08/20 at 11:30 Morphine Sulfate (Morphine Sulfate) 1 mg PRN Q1HR PRN IV PAIN; Start 07/08/20 at 11:30 Acetaminophen/ Hydrocodone Bitart (Lortab 5/325) 1 tab PRN Q4HRS PRN PO MILD PAIN 1-3 Last administered on 07/11/20at 14:57; Start 07/08/20 at 11:30 Acetaminophen (Tylenol) 650 mg PRN Q6HRS PRN PO Headaches, Temp > 101.5F; Start 07/08/20 at 11:30 Senna/Docusate Sodium (Senna Plus) 1 tab BID PO Last administered on 07/12/20 08:11; Start 07/08/20 at 21:00 Magnesium Hydroxide (Milk Of Magnesia) 2,400 mg PRN Q12HR PRN PO CONSTIPATION; Start 07/08/20 at 11:30 Lactulose (Lactulose) 20 gm PRN Q12HR PRN PO CONSTIPATION, 2ND CHOICE Last administered on 07/10/20 08:17; Start 07/08/20 at 11:30 Bisacodyl (Dulcolax Supp) 10 mg PRN DAILY PRN [place] CONSTIPATION; Start 07/08/20 at 11:30 Enoxaparin Sodium (Lovenox 40mg Syringe) 40 mg BID SQ Last administered on 07/12/20 08:11; Start 07/08/20 at 12:30 Insulin Glargine (Lantus Syringe) 35 unit QHS SQ Last administered on 07/08/20at 21:33; Start 07/08/20 at 21:00; Stop 07/09/20 at 08:03; Status DC Atorvastatin Calcium (Lipitor) 10 mg QHS PO Last administered on 07/11/20 20:24; Start 07/08/20 at 21:00 Ascorbic Acid (Vitamin C) 500 mg TID PO Last administered on 07/12/20 08:12; Start 07/08/20 at 14:00 Vitamin D (Vitamin D3) 2,000 unit DAILY PO Last administered on 07/12/20 08:11; Start 07/09/20 at 09:00 Zinc Sulfate (Orazinc) 220 mg DAILY PO Last administered on 07/12/20 08:11; Start 07/08/20 at 12:30 Methylprednisolone Sodium Succinate (SOLU-Medrol 40MG VIAL) 40 mg Q8HRS IV Last administered on 07/12/20 05:36; Start 07/08/20 at 14:00 Ceftriaxone Sodium (Rocephin) 1 gm Q24H IVP Last administered on 07/09/20 20:52; Start 07/08/20 at 22:00; Stop 07/10/20 at 13:00; Status DC Azithromycin (Zithromax) 250 mg DAILY PO Last administered on 07/12/20 08:11; Start 07/09/20 at 09:00; Stop 07/13/20 at 08:59 Insulin Glargine (Lantus Syringe) 35 unit 1X ONCE SQ ; Start 07/08/20 at 17:30; Stop 07/08/20 at 17:33; Status DC Insulin Human Lispro (HumaLOG) 12 units 1X ONCE SQ Last administered on 07/08/20at 23:50; Start 07/08/20 at 23:30; Stop 07/08/20 at 23:32; Status DC Insulin Glargine (Lantus Syringe) 23 unit BID SQ Last administered on 07/11/20at 20:25; Start 07/09/20 at 09:00; Stop 07/12/20 at 06:54; Status DC Insulin Human Lispro (HumaLOG) 14 units 1X SQ ; Start 07/09/20 at 12:30; Status Cancel Insulin Human Lispro (HumaLOG) 14 units 1X ONCE SQ Last administered on 07/09/20at 12:50; Start 07/09/20 at 13:15; Stop 07/09/20 at 13:16; Status DC Lactobacillus Rhamnosus (Culturelle) 1 cap BID PO Last administered on 07/12/20at 08:11; Start 07/09/20 at 21:00 Insulin Human Lispro (HumaLOG) 7 units 1X ONCE SQ Last administered on 07/10/20at 11:43; Start 07/10/20 at 11:30; Stop 07/10/20 at 11:31; Status DC Cefdinir (Omnicef) 300 mg BID PO Last administered on 07/12/20at 08:11; Start 07/10/20 at 13:00 Insulin Glargine (Lantus Syringe) 26 unit BID SQ Last administered on 07/12/20at 08:35; Start 07/12/20 at 09:00 Insulin Human Lispro (HumaLOG) 10 units TIDAC SQ Last administered on 07/12/20at 08:10; Start 07/12/20 at 07:30 Active Scripts Active Reported Glimepiride 2 Mg Tablet Unknown Dose PO DAILY Metformin Hcl 1,000 Mg Tablet 1,000 Mg PO BIDWMEALS Levemir (Insulin Detemir) 100 Unit/1 Ml Vial 35 Unit SQ DAILY Pravastatin Sodium 40 Mg Tablet 40 Mg PO DAILY Vitals/I & O Vital Sign - Last 24 Hours 07/11/20 07/11/20 07/11/20 07/11/20 09:44 10:44 11:00 14:57 Temp 96.3 96.3 Pulse 63 Resp 18 18 40 18 B/P (MAP) 118/78 (91) Pulse Ox 92 O2 Delivery Nasal Cannula Nasal Cannula Nasal Cannula Nasal Cannula O2 Flow Rate 4.0 4.0 6.0 4.0 07/11/20 07/11/20 07/11/20 07/11/20 15:00 15:57 17:41 20:15 Temp 98.0 98.2 98.0 98.2 Pulse 85 74 Resp 31 17 17 28 B/P (MAP) 133/85 (101) 131/70 (90) Pulse Ox 93 95 O2 Delivery Nasal Cannula Nasal Cannula Nasal Cannula Nasal Cannula O2 Flow Rate 6.0 4.0 4.0 6.0 07/11/20 07/11/20 07/12/20 07/12/20 20:48 23:45 03:00 05:40 Temp 97.2 97.4 97.2 97.4 Pulse 58 56 62 Resp 26 24 B/P (MAP) 132/90 (104) 108/72 (84) Pulse Ox 95 94 97 O2 Delivery Nasal Cannula Nasal Cannula Nasal Cannula Nasal Cannula O2 Flow Rate 6.0 6.0 6.0 6.0 07/12/20 07/12/20 07:00 08:00 Temp 97.7 97.7 Pulse 61 Resp 24 B/P (MAP) 131/77 (95) Pulse Ox 93 O2 Delivery Nasal Cannula Nasal Cannula O2 Flow Rate 4.0 4.0 Intake and Output 07/11/20 07/11/20 07/12/20 15:00 23:00 07:00 Intake Total 500 ml Output Total 700 ml Balance -200 ml Justicifation of Admission Dx: Justifications for Admission: Justification of Admission Dx: Yes Aspiration Pneumonia: Hypoxemia SUKHDEV GUERIN MD Jul 12, 2020 09:17
[2020-07-12 11:01] VITALS: BP 114/76
[2020-07-12 15:20] VITALS: BP 117/71
[2020-07-12] MEDS: oxyCODONE IR 5 MG TABLET PO PRN (20:10)
[2020-07-12] MEDS: ATORVASTATIN CALCIUM 10 MG TABLET. PO SCH (20:14)
[2020-07-12 20:24] VITALS: BP 123/86
[2020-07-12 22:37] VITALS: BP 115/75
[2020-07-13] MEDS: methylPREDNISolone SOD SUCC PF 40 MG/ML VIAL. IV SCH ×3 (05:47→20:29)
[2020-07-13 05:55] VITALS: BP 109/74
[2020-07-13] MEDS: HYDROcodone/APAP 5/325MG 1 TAB TABLET PO PRN (05:56)
[2020-07-13] MEDS: BENZONATATE 100 MG CAPSULE. PO PRN ×2 (05:56→20:28)
[2020-07-13 07:00] VITALS: BP 117/70
[2020-07-13] MEDS: INSULIN LISPRO 300 UNITS/3 ML VIAL. SQ SCH ×7 (07:53→16:36)
[2020-07-13] MEDS: CEFDINIR 300 MG CAPSULE PO SCH ×2 (07:55→20:28)
[2020-07-13] MEDS: SENNOSIDES/DOCUSATE 8.6/50MG TABLET. PO SCH ×2 (07:55→20:28)
[2020-07-13] MEDS: CHOLECALCIFEROL (VITAMIN D3) 1,000 UNIT TABLET PO SCH (07:55)
[2020-07-13] MEDS: LACTOBACILLUS RHAMNOSUS GG 1 CAPSULE. PO SCH ×2 (07:55→20:28)
[2020-07-13] MEDS: ENOXAPARIN 40 MG/0.4 ML SYRINGE. SQ SCH ×2 (07:55→20:30)
[2020-07-13] MEDS: ASCORBIC ACID 500 MG TABLET PO SCH ×3 (07:55→20:28)
[2020-07-13] MEDS: ZINC SULFATE 220 MG CAPSULE. PO SCH (07:56)
[2020-07-13] MEDS: INSULIN GLARGINE SYRINGE. SQ SCH ×2 (08:23→20:32)
[2020-07-13 11:00] VITALS: BP 119/73
--- NOTE | 2020-07-13 12:24 | PDOC ---
PROGRESS NOTES Date of Service: DATE: 07/13/20 TIME: 12:23 Chief Complaint Chief Complaint Assessment/Plan COVID-19 infection Diabetes mellitus type 2 insulin requiring Uncontrolled diabetes secondary to steroid Hypertension Dyslipidemia Overweight with a BMI of 27 Plan Solu-Medrol will be tapered Insulin for hyperglycemia will be adjusted increase lispro and increase lantus for better glycemic control Vitamin C&D Zinc Monitor oxygen requirements DVT prophylaxis with Lovenox Further recommendations based on the clinical course Hoepfully discharge in the next 24 to 48 hours History of Present Illness History of Present Illness History of Present Illness Patient is a 50-year-old female with past medical history of diabetes and hypertension dyslipidemia who was in her usual state of health until last week when her unfortunately was diagnosed with Covid. He is admitted to our institution as well and got quite sick and requiring oxygen reason why he was brought to the emergency department and the patient's also has worsen her condition. We have been asked to admit for supportive measures. The patient at the time my evaluation is in no apparent distress feels better compared to admission. She does not present severe dyspnea she denies any headaches no blurred vision no dysphagia odynophagia no focal neurological deficits no chest pain no palpitation no abdominal pain no nausea vomiting or diarrhea has been reported. Plan of care has been explained detail and all of her concerns were addressed to the best of my abilities 2/3: No acute events reported overnight, case discussed with nursing staff patient in no acute distress no complaints during my visit 2/4: No acute events reported overnight, patient seems to be a little better compared to yesterday respiratory status has remained stable complaints of chest discomfort due to coughing effort reassurance provided all concerns addressed to the best of my abilities 2/5: Patient seems to be doing better still having headache and also chest discomfort due to the coughing effort. She had constipation yesterday but this has since resolved after providing her with senna S and MiraLAX. No new complaints 2/6: No acute events reported overnight, case discussed with nursing staff patient in no acute distress no complaints during my visit Vitals Vitals Vital Signs Date Time Temp Pulse Resp B/P (MAP) Pulse Ox O2 Delivery O2 Flow Rate FiO2 07/13/20 11:00 97.6 71 18 119/73 (88) 95 Nasal Cannula 3.0 97.6 Physical Exam General: Alert, Oriented X3, Cooperative, No acute distress Heart: Regular rate, Normal S1, Normal S2 Lungs: Clear Abdomen: Normal bowel sounds, Soft, No tenderness Extremities: No clubbing, No cyanosis Skin: No rashes Labs LABS Laboratory Tests Test 07/12/20 16:32 07/12/20 20:19 07/13/20 07:28 07/13/20 11:22 Glucose (Fingerstick) 251 mg/dL (70-99) 323 mg/dL (70-99) 340 mg/dL (70-99) 292 mg/dL (70-99) Assessment and Plan Assessmemt and Plan Problems Medical Problems: (1) Bilateral pneumonia Status: Acute (2) Community acquired pneumonia Status: Acute (3) COVID-19 Status: Acute (4) Hypoxia Status: Acute (5) Poorly controlled diabetes mellitus Status: Acute Comment Review of Relevant I have reviewed the following items bird (where applicable) has been applied. Labs Laboratory Tests Test 07/11/20 15:55 07/11/20 20:13 07/12/20 08:01 07/12/20 10:54 Glucose (Fingerstick) 317 mg/dL (70-99) 383 mg/dL (70-99) 359 mg/dL (70-99) 344 mg/dL (70-99) Test 07/12/20 16:32 07/12/20 20:19 07/13/20 07:28 07/13/20 11:22 Glucose (Fingerstick) 251 mg/dL (70-99) 323 mg/dL (70-99) 340 mg/dL (70-99) 292 mg/dL (70-99) Laboratory Tests Test 07/12/20 16:32 07/12/20 20:19 07/13/20 07:28 07/13/20 11:22 Glucose (Fingerstick) 251 mg/dL (70-99) 323 mg/dL (70-99) 340 mg/dL (70-99) 292 mg/dL (70-99) Microbiology 07/07/20 Blood Culture - Final, Complete NO GROWTH AFTER 5 DAYS Medications Current Medications Dexamethasone Sodium Phosphate (Decadron) 10 mg 1X ONCE IV Last administered on 07/08/20at 00:52; Start 07/07/20 at 23:45; Stop 07/07/20 at 23:46; Status DC Azithromycin 250 ml @ 250 mls/hr 1X ONCE IV Last administered on 07/08/20at 00:51; Start 07/07/20 at 23:45; Stop 07/08/20 at 00:44; Status DC Ceftriaxone Sodium (Rocephin) 1 gm 1X ONCE IVP Last administered on 07/08/20at 00:51; Start 07/07/20 at 23:45; Stop 07/07/20 at 23:46; Status DC Iohexol (Omnipaque 350 Mg/ml) 75 ml 1X ONCE IV Last administered on 07/07/20at 00:15; Start 07/07/20 at 23:45; Stop 07/07/20 at 23:46; Status DC Info (CONTRAST GIVEN -- Rx MONITORING) 1 each PRN DAILY PRN MC SEE COMMENTS; Start 07/07/20 at 23:45; Stop 07/09/20 at 23:44; Status DC Sodium Chloride 1,000 ml @ 1,000 mls/hr 1X ONCE IV Last administered on 07/08/20at 01:56; Start 07/08/20 at 02:00; Stop 07/08/20 at 02:59; Status DC Insulin Human Regular (HumuLIN R VIAL) 5 unit 1X ONCE IV Last administered on 07/08/20at 01:56; Start 07/08/20 at 02:00; Stop 07/08/20 at 02:01; Status DC Ondansetron HCl (Zofran) 4 mg PRN Q8HRS PRN IV NAUSEA/VOMITING 1ST CHOICE; Start 07/08/20 at 01:45; Stop 07/08/20 at 12:09; Status DC Fentanyl Citrate (Fentanyl 2ml Vial) 50 mcg PRN Q4HRS PRN IV SEVERE PAIN 7-10 Last administered on 07/08/20at 05:31; Start 07/08/20 at 01:45; Stop 07/09/20 at 01:44; Status DC Acetaminophen (Tylenol) 650 mg PRN Q4HRS PRN PO FEVER > 100.3'F Last administered on 07/08/20at 05:31; Start 07/08/20 at 01:45; Stop 07/09/20 at 01:44; Status DC Benzonatate (Tessalon Perle) 100 mg PRN TID PRN PO COUGH Last administered on 07/13/20at 05:56; Start 07/08/20 at 03:30 Insulin Glargine (Lantus Syringe) 12 unit BID SQ Last administered on 07/08/20at 11:42; Start 07/08/20 at 12:00; Stop 07/08/20 at 12:13; Status DC Insulin Human Lispro (HumaLOG) 0-7 UNITS TIDWMEALS SQ Last administered on 07/13/20at 11:53; Start 07/08/20 at 12:00 Dextrose (Dextrose 50%-Water Syringe) 12.5 gm PRN Q15MIN PRN IV SEE COMMENTS; Start 07/08/20 at 11:30 Ondansetron HCl (Zofran) 4 mg PRN Q6HRS PRN IVP NAUSEA/VOMITING; Start 07/08/20 at 11:30 Al Hydroxide/Mg Hydroxide (Mylanta Plus Xs) 30 ml PRN Q3HRS PRN PO HEARTBURN / GAS; Start 07/08/20 at 11:30 Calcium Carbonate/ Glycine (Tums) 500 mg PRN Q3HRS PRN PO UPSET STOMACH; Start 07/08/20 at 11:30 Zolpidem Tartrate (Ambien) 5 mg PRN QHS PRN PO INSOMNIA, MAY REPEAT IN 1HR Last administered on 07/10/20at 20:45; Start 07/08/20 at 11:30 Info (Non-Icu Electrolyte Protocol) 1 ea PRN DAILY PRN MC SEE COMMENTS; Start 07/08/20 at 11:30 Oxycodone HCl (Roxicodone) 5 mg PRN Q3HRS PRN PO BREAKTHROUGH PAIN Last administered on 07/12/20at 20:10; Start 07/08/20 at 11:30 Morphine Sulfate (Morphine Sulfate) 1 mg PRN Q1HR PRN IV PAIN; Start 07/08/20 at 11:30 Acetaminophen/ Hydrocodone Bitart (Lortab 5/325) 1 tab PRN Q4HRS PRN PO MILD PAIN 1-3 Last administered on 07/13/20at 05:56; Start 07/08/20 at 11:30 Acetaminophen (Tylenol) 650 mg PRN Q6HRS PRN PO Headaches, Temp > 101.5F Last administered on 07/12/20at 17:54; Start 07/08/20 at 11:30 Senna/Docusate Sodium (Senna Plus) 1 tab BID PO Last administered on 07/13/20 07:55; Start 07/08/20 at 21:00 Magnesium Hydroxide (Milk Of Magnesia) 2,400 mg PRN Q12HR PRN PO CONSTIPATION; Start 07/08/20 at 11:30 Lactulose (Lactulose) 20 gm PRN Q12HR PRN PO CONSTIPATION, 2ND CHOICE Last administered on 07/10/20at 08:17; Start 07/08/20 at 11:30 Bisacodyl (Dulcolax Supp) 10 mg PRN DAILY PRN [place] CONSTIPATION; Start 07/08/20 at 11:30 Enoxaparin Sodium (Lovenox 40mg Syringe) 40 mg BID SQ Last administered on 07/13/20 07:55; Start 07/08/20 at 12:30 Insulin Glargine (Lantus Syringe) 35 unit QHS SQ Last administered on 07/08/20at 21:33; Start 07/08/20 at 21:00; Stop 07/09/20 at 08:03; Status DC Atorvastatin Calcium (Lipitor) 10 mg QHS PO Last administered on 07/12/20at 20:14; Start 07/08/20 at 21:00 Ascorbic Acid (Vitamin C) 500 mg TID PO Last administered on 07/13/20 07:55; Start 07/08/20 at 14:00 Vitamin D (Vitamin D3) 2,000 unit DAILY PO Last administered on 07/13/20 07:55; Start 07/09/20 at 09:00 Zinc Sulfate (Orazinc) 220 mg DAILY PO Last administered on 07/13/20 07:56; Start 07/08/20 at 12:30 Methylprednisolone Sodium Succinate (SOLU-Medrol 40MG VIAL) 40 mg Q8HRS IV Last administered on 07/13/20 05:47; Start 07/08/20 at 14:00 Ceftriaxone Sodium (Rocephin) 1 gm Q24H IVP Last administered on 07/09/20 20:52; Start 07/08/20 at 22:00; Stop 07/10/20 at 13:00; Status DC Azithromycin (Zithromax) 250 mg DAILY PO Last administered on 07/12/20at 08:11; Start 07/09/20 at 09:00; Stop 07/13/20 at 08:59; Status DC Insulin Glargine (Lantus Syringe) 35 unit 1X ONCE SQ ; Start 07/08/20 at 17:30; Stop 07/08/20 at 17:33; Status DC Insulin Human Lispro (HumaLOG) 12 units 1X ONCE SQ Last administered on at 23:50; Start 07/08/20 at 23:30; Stop 07/08/20 at 23:32; Status DC Insulin Glargine (Lantus Syringe) 23 unit BID SQ Last administered on 07/11/20at 20:25; Start 07/09/20 at 09:00; Stop 07/12/20 at 06:54; Status DC Insulin Human Lispro (HumaLOG) 14 units 1X SQ ; Start 07/09/20 at 12:30; Status Cancel Insulin Human Lispro (HumaLOG) 14 units 1X ONCE SQ Last administered on 07/09/20at 12:50; Start 07/09/20 at 13:15; Stop 07/09/20 at 13:16; Status DC Lactobacillus Rhamnosus (Culturelle) 1 cap BID PO Last administered on 07/13/20at 07:55; Start 07/09/20 at 21:00 Insulin Human Lispro (HumaLOG) 7 units 1X ONCE SQ Last administered on 07/10/20 at 11:43; Start 07/10/20 at 11:30; Stop 07/10/20 at 11:31; Status DC Cefdinir (Omnicef) 300 mg BID PO Last administered on 07/13/20at 07:55; Start 07/10/20 at 13:00 Insulin Glargine (Lantus Syringe) 26 unit BID SQ Last administered on 07/13/20at 08:23; Start 07/12/20 at 09:00 Insulin Human Lispro (HumaLOG) 10 units TIDAC SQ Last administered on 07/13/20at 11:53; Start 07/12/20 at 07:30 Active Scripts Active Reported Glimepiride 2 Mg Tablet Unknown Dose PO DAILY Metformin Hcl 1,000 Mg Tablet 1,000 Mg PO BIDWMEALS Levemir (Insulin Detemir) 100 Unit/1 Ml Vial 35 Unit SQ DAILY Pravastatin Sodium 40 Mg Tablet 40 Mg PO DAILY Vitals/I & O Vital Sign - Last 24 Hours 07/12/20 07/12/20 07/12/20 07/12/20 15:20 20:24 20:33 22:37 Temp 97.8 97.6 97.5 97.8 97.6 97.5 Pulse 66 69 50 Resp 24 24 22 B/P (MAP) 117/71 (86) 123/86 (98) 115/75 (88) Pulse Ox 97 93 97 O2 Delivery Nasal Cannula Nasal Cannula Nasal Cannula Nasal Cannula O2 Flow Rate 4.0 4.0 4.0 3.0 07/13/20 07/13/20 07/13/20 07/13/20 03:00 05:55 07:00 08:00 Temp 97.6 96.8 97.6 96.8 Pulse 50 56 61 Resp 15 23 18 B/P (MAP) 109/74 (86) 117/70 (86) Pulse Ox 96 96 95 O2 Delivery Nasal Cannula Nasal Cannula Nasal Cannula Nasal Cannula O2 Flow Rate 3.0 3.0 3.0 3.0 07/13/20 11:00 Temp 97.6 97.6 Pulse 71 Resp 18 B/P (MAP) 119/73 (88) Pulse Ox 95 O2 Delivery Nasal Cannula O2 Flow Rate 3.0 Justicifation of Admission Dx: Justifications for Admission: Justification of Admission Dx: Yes Aspiration Pneumonia: Hypoxemia SUKHDEV GUERIN MD Jul 13, 2020 12:24
[2020-07-13 15:00] VITALS: BP 99/75
[2020-07-13] MEDS: ATORVASTATIN CALCIUM 10 MG TABLET. PO SCH (20:29)
[2020-07-13 20:39] VITALS: BP 123/77
[2020-07-13] MEDS: oxyCODONE IR 5 MG TABLET PO PRN (20:53)
[2020-07-13 23:21] VITALS: BP 125/72
[2020-07-14 03:13] VITALS: BP 129/85
[2020-07-14] MEDS: methylPREDNISolone SOD SUCC PF 40 MG/ML VIAL. IV SCH ×3 (05:43→21:30)
[2020-07-14 07:00] VITALS: BP 112/77
[2020-07-14] MEDS: ENOXAPARIN 40 MG/0.4 ML SYRINGE. SQ SCH ×2 (07:56→21:30)
[2020-07-14] MEDS: CHOLECALCIFEROL (VITAMIN D3) 1,000 UNIT TABLET PO SCH (07:56)
[2020-07-14] MEDS: CEFDINIR 300 MG CAPSULE PO SCH ×2 (07:57→21:29)
[2020-07-14] MEDS: ASCORBIC ACID 500 MG TABLET PO SCH ×3 (07:57→21:29)
[2020-07-14] MEDS: oxyCODONE IR 5 MG TABLET PO PRN ×2 (07:57→10:59)
[2020-07-14] MEDS: ZINC SULFATE 220 MG CAPSULE. PO SCH (07:57)
[2020-07-14] MEDS: SENNOSIDES/DOCUSATE 8.6/50MG TABLET. PO SCH ×2 (07:57→21:31)
[2020-07-14] MEDS: BENZONATATE 100 MG CAPSULE. PO PRN (07:57)
[2020-07-14] MEDS: INSULIN GLARGINE SYRINGE. SQ SCH ×2 (08:09→21:30)
[2020-07-14] MEDS: INSULIN LISPRO 300 UNITS/3 ML VIAL. SQ SCH ×6 (08:10→16:41)
[2020-07-14] MEDS: LACTOBACILLUS RHAMNOSUS GG 1 CAPSULE. PO SCH ×2 (09:49→21:29)
[2020-07-14 11:30] VITALS: BP 124/74
[2020-07-14 15:00] VITALS: BP 109/72
--- NOTE | 2020-07-14 15:15 | PDOC ---
[facility] PROGRESS NOTE Date of Service DOS: DATE: 07/14/20 TIME: 15:14 Chief Complaint Chief Complaint Assessment/Plan COVID-19 infection Diabetes mellitus type 2 insulin requiring Uncontrolled diabetes secondary to steroid Hypertension Dyslipidemia Overweight with a BMI of 27 Plan Solu-Medrol will be tapered Insulin for hyperglycemia will be adjusted increase lispro and increase lantus for better glycemic control Vitamin C&D Zinc Monitor oxygen requirements DVT prophylaxis with Lovenox Further recommendations based on the clinical course Hoepfully discharge in the next 24 to 48 hours History of Present Illness History of Present Illness History of Present Illness Patient is a 50-year-old female with past medical history of diabetes and hypertension dyslipidemia who was in her usual state of health until last week when her unfortunately was diagnosed with Covid. He is admitted to our institution as well and got quite sick and requiring oxygen reason why he was brought to the emergency department and the patient's also has worsen her condition. We have been asked to admit for supportive measures. The patient at the time my evaluation is in no apparent distress feels better compared to admission. She does not present severe dyspnea she denies any headaches no blurred vision no dysphagia odynophagia no focal neurological deficits no chest pain no palpitation no abdominal pain no nausea vomiting or diarrhea has been reported. Plan of care has been explained detail and all of her concerns were addressed to the best of my abilities 23: No acute events reported overnight, case discussed with nursing staff patient in no acute distress no complaints during my visit 2: No acute events reported overnight, patient seems to be a little better compared to yesterday respiratory status has remained stable complaints of chest discomfort due to coughing effort reassurance provided all concerns addressed to the best of my abilities 07/11: Patient seems to be doing better still having headache and also chest discomfort due to the coughing effort. She had constipation yesterday but this has since resolved after providing her with senna S and MiraLAX. No new complaints 07/12: No acute events reported overnight, case discussed with nursing staff patient in no acute distress no complaints during my visit 07/14/2020 No acute events overnight. Patient saturating 94% on 2 L nasal cannula. No dyspnea reported at this time. Able to ambulate throughout her room without any complaints. Patient's chart, labs, images were reviewed and discussed with RN. Will obtain 6-minute walk test before discharge. Vitals/I&O Vitals/I&O: Vital Signs Date Time Temp Pulse Resp B/P (MAP) Pulse Ox O2 Delivery O2 Flow Rate FiO2 07/14/20 11:30 97.5 59 20 124/74 (91) 97 Nasal Cannula 1.0 97.5 I & O 07/13/20 07/13/20 07/14/20 15:00 23:00 07:00 Intake Total 620 ml 300 ml 800 ml Output Total 700 ml 1150 ml Balance 620 ml -400 ml -350 ml Physical Exam General: Alert, Oriented X3, Cooperative, No acute distress Heart: Regular rate, Normal S1, Normal S2 Lungs: Clear Abdomen: Normal bowel sounds, Soft, No tenderness Extremities: No clubbing, No cyanosis Skin: No rashes Labs Labs: Laboratory Tests Test 07/13/20 16:27 07/13/20 20:37 07/14/20 07:53 07/14/20 11:25 Glucose (Fingerstick) 226 mg/dL (70-99) 275 mg/dL (70-99) 254 mg/dL (70-99) 284 mg/dL (70-99) Assessment and Plan Assessmemt and Plan Problems Medical Problems: (1) Bilateral pneumonia Status: Acute (2) Community acquired pneumonia Status: Acute (3) COVID-19 Status: Acute (4) Hypoxia Status: Acute (5) Poorly controlled diabetes mellitus Status: Acute Comment Review of Relevant I have reviewed the following items bird (where applicable) has been applied. Medications: Current Medications Medications (Trade) Dose Ordered Sig/Antonia Route PRN Reason Start Time Stop Time Status Last Admin Dose Admin Insulin Glargine (Lantus Syringe) 31 unit BID SQ 07/13/20 21:00 07/14/20 08:09 Justifications for Admission Other Justification FOSTER SEGURA MD Jul 14, 2020 15:15
[2020-07-14 19:00] VITALS: BP 121/68
[2020-07-14] MEDS ORDERED: INSULIN LISPRO 300 UNITS/3 ML VIAL. SQ ONE (21:00)
[2020-07-14] MEDS: ATORVASTATIN CALCIUM 10 MG TABLET. PO SCH (21:29)
[2020-07-14 23:36] VITALS: BP 134/77
[2020-07-15 03:00] VITALS: BP 114/80
[2020-07-15] MEDS: methylPREDNISolone SOD SUCC PF 40 MG/ML VIAL. IV SCH (06:03)
[2020-07-15 07:00] VITALS: BP 114/73
[2020-07-15] MEDS: INSULIN LISPRO 300 UNITS/3 ML VIAL. SQ SCH ×4 (08:06→11:36)
[2020-07-15] MEDS: ZINC SULFATE 220 MG CAPSULE. PO SCH (08:43)
[2020-07-15] MEDS: CHOLECALCIFEROL (VITAMIN D3) 1,000 UNIT TABLET PO SCH (08:43)
[2020-07-15] MEDS: SENNOSIDES/DOCUSATE 8.6/50MG TABLET. PO SCH (08:43)
[2020-07-15] MEDS: CEFDINIR 300 MG CAPSULE PO SCH (08:44)
[2020-07-15] MEDS: ENOXAPARIN 40 MG/0.4 ML SYRINGE. SQ SCH (08:44)
[2020-07-15] MEDS: LACTOBACILLUS RHAMNOSUS GG 1 CAPSULE. PO SCH (08:44)
[2020-07-15] MEDS: ASCORBIC ACID 500 MG TABLET PO SCH (08:44)
[2020-07-15] MEDS: BENZONATATE 100 MG CAPSULE. PO PRN (08:56)
[2020-07-15] MEDS: INSULIN GLARGINE SYRINGE. SQ SCH (08:59)
[2020-07-15] MEDS ORDERED: predniSONE 20 MG TABLET PO SCH (09:00)
[2020-07-15 11:24] VITALS: BP 103/68
--- NOTE | 2020-07-15 12:13 | DISCH ---
DISCHARGE INSTRUCTIONS Condition on Discharge Condition on Discharge: Stable (Remain quarantined from the date of positive test for at least 2 weeks) Activity After Discharge Activity Instructions for Disc: Resume previous activity, Activity as tolerated Exercise Instruction after Dis: Progress as tolerated Driving Instructions after Dis: Do not drive today Contacting the after DC Call your doctor for: If your condition worsens Follow-Up Follow up with: PCP within 2 weeks of discharge FOSTER SEGURA MD Jul 15, 2020 12:13
[2020-07-15] MEDS ORDERED: PRED5TAB PO (13:43)
[2020-07-15] MEDS ORDERED: PRED-220 PO (13:43)
[2020-07-15] MEDS ORDERED: PRED20TA PO (13:43)
--- NOTE | 2020-07-15 14:11 | NUR ---
Pt left unit at approx 1410 by wheelchair via private vehicle. IV removed without complications, VSS. Discharge paperwork discussed with pt, printed in Wolof. Additional COVID teaching sent with pt also.
--- NOTE | 2020-07-17 17:28 | PDOC3 ---
[facility]-Discharge Summary Date of Admission: Date of Admission: Jul 08, 2020 Date of Discharge: Date of Discharge: Jul 15, 2020 Discharge Diagnosis: Discharge Diagnosis: COVID-19 infection Diabetes mellitus type 2 insulin requiring Uncontrolled diabetes secondary to steroid Hypertension Dyslipidemia Overweight with a BMI of 27 Hospital Course: Hospital Course: 50-year-old female with past medical history of diabetes and hypertension dyslipidemia who was in her usual state of health until last week when her unfortunately was diagnosed with Covid. He is admitted to our institution as well and got quite sick and requiring oxygen reason why he was brought to the emergency department and the patient's also has worsen her condition. We have been asked to admit for supportive measures. The patient at the time my evaluation is in no apparent distress feels better compared to admission. She does not present severe dyspnea she denies any headaches no blurred vision no dysphagia odynophagia no focal neurological deficits no chest pain no palpitation no abdominal pain no nausea vomiting or diarrhea has been reported. Plan of care has been explained detail and all of her concerns were addressed to the best of my abilities 2: No acute events reported overnight, case discussed with nursing staff patient in no acute distress no complaints during my visit 07/10: No acute events reported overnight, patient seems to be a little better compared to yesterday respiratory status has remained stable complaints of chest discomfort due to coughing effort reassurance provided all concerns addressed to the best of my abilities 07/11: Patient seems to be doing better still having headache and also chest discomfort due to the coughing effort. She had constipation yesterday but this has since resolved after providing her with senna S and MiraLAX. No new complaints 07/12: No acute events reported overnight, case discussed with nursing staff patient in no acute distress no complaints during my visit 07/14/2020 No acute events overnight. Patient saturating 94% on 2 L nasal cannula. No dyspnea reported at this time. Able to ambulate throughout her room without any complaints. Patient's chart, labs, images were reviewed and discussed with RN. Will obtain 6-minute walk test before discharge. Clinically stable on day of discharge. She will go home without any home O2 and she will need to complete a prednisone taper. Disposition: Disposition/Orders: D/C to Home Activity: Activity: Resume previous activity Diet: Diet: Consistent Carbohydrate Medications: Home Meds Active Scripts Prednisone (PREDNISONE) 5 Mg Tablet, 5 MG PO DAILY for covid for 3 Days, #3 TAB Prov:FOSTER SEGURA MD 07/15/20 Prednisone (PREDNISONE ) 10 Mg Tablet, 10 MG PO DAILY for covid for 3 Days, #3 TAB Prov:FOSTER SEGURA MD 07/15/20 Prednisone (PREDNISONE) 20 Mg Tablet, 20 MG PO DAILY for covid for 3 Days, #3 TAB Prov:FOSTER SEGURA MD 07/15/20 Prednisone (PREDNISONE ) 10 Mg Tablet, 30 MG PO DAILY for covid for 3 Days, #9 TAB Prov:FOSTER SEGURA MD 07/15/20 Prednisone (PREDNISONE) 20 Mg Tablet, 40 MG PO DAILY for covid for 3 Days, #6 TAB Prov:FOSTER SEGURA MD 07/15/20 Reported Medications Glimepiride (GLIMEPIRIDE) 2 Mg Tablet, PO DAILY for dm, TAB 07/08/20 Metformin Hcl (METFORMIN HCL) 1,000 Mg Tablet, 1000 MG PO BIDWMEALS for dm, TAB 07/08/20 Insulin Detemir (LEVEMIR) 100 Unit/1 Ml Vial, 35 UNIT SQ DAILY for dm, EACH 07/08/20 Pravastatin Sodium (PRAVASTATIN SODIUM) 40 Mg Tablet, 40 MG PO DAILY for hld, TAB 07/08/20 Scheduled Glimepiride (Glimepiride), Unknown Dose PO DAILY, (Reported) Insulin Detemir (Levemir), 35 UNIT SQ DAILY, (Reported) Metformin Hcl (Metformin Hcl), 1,000 MG PO BIDWMEALS, (Reported) Pravastatin Sodium (Pravastatin Sodium), 40 MG PO DAILY, (Reported) Prednisone (Prednisone), 40 MG PO DAILY Prednisone (Prednisone ), 30 MG PO DAILY Prednisone (Prednisone), 20 MG PO DAILY Prednisone (Prednisone ), 10 MG PO DAILY Prednisone (Prednisone), 5 MG PO DAILY Total Time: Total Time: Total time spent was 45 minutes in preparing scripts, discharge planning with SW and RN, and preparing this discharge summary. Patient seen and examined on day of discharge. Justicifation of Admission Dx: Justifications for Admission: Justification of Admission Dx: Yes Aspiration Pneumonia: Hypoxemia FOSTER SEGURA MD Jul 17, 2020 17:27
[2020-07-18] MEDS ORDERED: predniSONE 10 MG TABLET PO SCH (09:00)
[2020-07-21] MEDS ORDERED: predniSONE 20 MG TABLET PO SCH (09:00)
[2020-07-24] MEDS ORDERED: predniSONE 10 MG TABLET PO SCH (09:00)
[2020-07-27] MEDS ORDERED: predniSONE 5 MG TABLET PO SCH (09:00)
== END 2020-07-15 14:17 | disposition home or self-care (01) | DRG 177 ==
LOC: ER 21:34 → 6 SOUTH 07-08 00:50
PROVIDERS: ADMIT Family Medicine; ATTEND Family Medicine
DX: U07.1 COVID-19 (principal); J12.82 Pneumonia due to coronavirus disease 2019; E11.65 Type 2 diabetes mellitus with hyperglycemia; Z79.4 Long term (current) use of insulin; I10 Essential (primary) hypertension; E78.5 Hyperlipidemia, unspecified; E66.3 Overweight; T38.0X5A Adverse effect of glucocorticoids and synthetic analogues, initial encounter; R09.02 Hypoxemia; E78.00 Pure hypercholesterolemia, unspecified; Z90.710 Acquired absence of both cervix and uterus; Z98.891 History of uterine scar from previous surgery; Z68.27 Body mass index [BMI] 27.0-27.9, adult; Y92.89 Other specified places as the place of occurrence of the external cause
CPT/HCPCS: 36415; 36600; 71045; 71275; 80048; 80053; 82728; 82805; 82962; 83605; 83615; 83735; 83880; 84100; 84145; 84484; 85025; 85379; 87040; 93005; 94618; 96365; 96375; 99285; J0456; J0696; J1100; J1650; J1815; J2920; J3010; J7030; J7512; Q9967; G0378

== ENCOUNTER 2021-08-14 08:43 | Day surgery (SDC) | payer BC ==
[~2021-08-14] VITALS: Ht 167.6 cm; Wt 75.0 kg
[~2021-08-14 08:43] MED LIST: DICL75TA PO; DULO60CA45 PO; GLIM2TAB7 PO; GLIM4TAB8 PO; HYDROmorphone 2 MG/ML INJ. IVP PRN; IBUP-1060 PO; INSU100V13 SQ; INSU100V31 SQ; IV RINGERS,LACTATED 1000ML 1,000 ML IV SCH; METF10007 PO; MORPHINE SULFATE 2 MG/ML INJ. IVP PRN; PRAV40TA2 PO; PRED-220 PO; PRED20TA PO; PRED5TAB PO; PROCHLORPERAZINE 10 MG/2 ML VIAL. IVP PRN; fentaNYL PF VIAL 100 MCG/2 ML VIAL IVP PRN
[2021-08-14] MEDS ORDERED: LIDOCAINE 2% PF 5 ML VIAL. ONE (09:22)
[2021-08-14] MEDS ORDERED: PROPOFOL 10 MG/ML (20ML) VIAL. IV ONE (09:22)
[2021-08-14] MEDS ORDERED: MIDAZOLAM HCL/PF 2 MG/2 ML VIAL. ONE (09:22)
[2021-08-14] MEDS ORDERED: fentaNYL PF VIAL 100 MCG/2 ML VIAL ONE ×2 (09:22→10:39)
[2021-08-14] MEDS ORDERED: BUPIVACAINE MPF 0.25% 30 ML VIAL. ONE (09:23)
[2021-08-14] MEDS ORDERED: KETOROLAC 30 MG/ML VIAL. ONE (09:24)
[2021-08-14] MEDS ORDERED: ONDANSETRON PF 4 MG/2 ML VIAL. ONE (09:24)
[2021-08-14] MEDS: INSULIN LISPRO 100 UNIT/ML 3ML VIAL for OP,RR ONLY. SQ PRN ×2 (09:43→10:48)
[2021-08-14] MEDS ORDERED: TRAM50TA PO (10:09)
--- NOTE | 2021-08-14 10:25 | PDOC4 ---
OPERATIVE NOTE Date: Date: Aug 14, 2021 Pre-Op Diagnosis: Chronic severe carpal tunnel syndrome right Post-Op Diagnosis: Same Procedure Performed: Carpal tunnel release right Surgeon: Tanner Anesthesia Type: General Blood Loss: 5 cc Specimans Obtained: None Findings: See dictation Complications: None SAVANNAH LUCIA Jr., DO Aug 14, 2021 10:25
[2021-08-14] MEDS: fentaNYL PF VIAL 100 MCG/2 ML VIAL IVP PRN ×2 (10:44→10:51)
--- NOTE | 2021-08-14 10:47 | OP ---
DATE OF SURGERY: 08/14/2021 PREOPERATIVE DIAGNOSIS: Chronic and severe carpal tunnel syndrome, right. POSTOPERATIVE DIAGNOSIS: Chronic and severe carpal tunnel syndrome, right. PROCEDURE: Right carpal tunnel release. SURGEON: Adama Hart Jr, DO BULLDOZER/LOADER/COMPACTOR/SCRAPER: Dennis Nina. ANESTHESIA: General. COMPLICATIONS: None. ESTIMATED BLOOD LOSS: 5 mL DESCRIPTION OF PROCEDURE: The patient was taken to the operative suite 8. The right upper extremity was then prepped and draped in a sterile fashion. Incision was made through skin and subcutaneous tissues down to the palmar fascia. This was in line with the radial border of the fourth digit overlying the area of the transverse carpal ligament. Superficial bleeding was coagulated using a Bovie knife. The incision was then continued through the palmar fascia to identify the transverse carpal ligament itself and this was released. The underlying nerve was noted to be intact. Significant pressure was noted on the nerve; however, it was noted to be intact. This wound was then thoroughly irrigated. The wound was then reapproximated in an interrupted fashion using 3-0 nylon. Sterile dressing was applied. Tourniquet was deflated with good return of pulses and capillary refill with no excessive bleeding. The patient was then taken from the operative bed to the postoperative bed, taken to the PACU in stable condition. PRITI DR: Aristides TID: [id number]
[2021-08-14] MEDS ORDERED: INSULIN LISPRO 100 UNIT/ML 3ML VIAL for OP,RR ONLY. SQ ONE ×2 (11:00)
[2021-08-14 11:30] VITALS: BP 128/69
[2021-08-14] MEDS ORDERED: traMADol 50 MG TABLET PO ONE (11:45)
== END 2021-08-14 12:05 | disposition home or self-care (01) ==
LOC: SURG 08:43
PROVIDERS: ATTEND Orthopaedic Surgery
DX: G56.01 Carpal tunnel syndrome, right upper limb (principal); I10 Essential (primary) hypertension; E78.00 Pure hypercholesterolemia, unspecified; E11.9 Type 2 diabetes mellitus without complications; K21.9 Gastro-esophageal reflux disease without esophagitis; Z79.4 Long term (current) use of insulin; Z79.899 Other long term (current) drug therapy; Z90.49 Acquired absence of other specified parts of digestive tract; Z98.890 Other specified postprocedural states
CPT/HCPCS: 64721; 82962; A4930; J0690; J1815; J1885; J2250; J2405; J2704; J3010; J3490; A4657; A6452

== ENCOUNTER 2021-09-04 06:00 | Day surgery (SDC) | payer BC ==
[~2021-09-04] VITALS: Ht 167.6 cm; Wt 75.0 kg
[~2021-09-04 06:00] MED LIST changes: +INSULIN LISPRO 100 UNIT/ML 3ML VIAL for OP,RR ONLY. SQ PRN; +TRAM50TA PO
[2021-09-04] MEDS ORDERED: DEXAMETHASONE SOD PHOS 4 MG/ML VIAL ONE (07:11)
[2021-09-04] MEDS ORDERED: ONDANSETRON PF 4 MG/2 ML VIAL. ONE (07:11)
[2021-09-04] MEDS ORDERED: LIDOCAINE 2% PF 5 ML VIAL. ONE (07:11)
[2021-09-04] MEDS ORDERED: PROPOFOL 10 MG/ML (20ML) VIAL. IV ONE (07:11)
[2021-09-04] MEDS ORDERED: fentaNYL PF VIAL 100 MCG/2 ML VIAL ONE ×2 (07:11→08:56)
[2021-09-04] MEDS ORDERED: SEVOFLURANE 16 TO 30 MINUTES. IH ONE (07:11)
[2021-09-04] MEDS ORDERED: MIDAZOLAM HCL/PF 2 MG/2 ML VIAL. ONE (07:11)
[2021-09-04] MEDS ORDERED: BUPIVACAINE MPF 0.25% 30 ML VIAL. ONE (07:17)
[2021-09-04] MEDS ORDERED: FAMOTIDINE 20 MG/2 ML VIAL ONE (07:17)
[2021-09-04] MEDS ORDERED: HYDR-2761 PO (07:34)
--- NOTE | 2021-09-04 07:38 | DISCH ---
DISCHARGE INSTRUCTIONS Condition on Discharge Condition on Discharge: Stable Activity After Discharge Activity Instructions for Disc: Resume previous activity, Activity as kailash ated, Avoid exertion Lifting Instructions after Dis: No pulling or pushing Exercise Instruction after Dis: Progress as tolerated Driving Instructions after Dis: Do not drive today Weight Bearing Status after Di: As tolerated Diet after Discharge Diet after Discharge: Diabetic No Calorie Level Liquid Texture: Thin Liquid Wound Incision Care Wound/Incision Care: Ice to area for comfort, Keep wound elevated, Change dressing, No wound care needed Other wound/incision instructi: May change dressings postoperative day #3 Checks after Discharge Checks after discharge: Check blood press - daily, Check blood sugar, ac/hs Contacting the DR. after DC Call your doctor for: If your condition worsens Follow-Up Follow Up With: 14 to 17 days with Tanner Treatment/Equipment after DC Adaptive Equipment Issued: None SAVANNAH LUCIA Jr. DO Sep 04, 2021 07:38
--- NOTE | 2021-09-04 07:59 | PDOC4 ---
OPERATIVE NOTE Date: Date: Sep 04, 2021 Pre-Op Diagnosis: Carpal tunnel syndrome left Post-Op Diagnosis: Same Procedure Performed: Left carpal tunnel release Surgeon: Tanner Anesthesia Type: General Blood Loss: 5 cc Specimans Obtained: None Findings: See dictation Complications: None SAVANNAH LUCIA Jr. DO Sep 04, 2021 07:59
[2021-09-04] MEDS ORDERED: HYDROcodone/APAP 5/325MG 1 TAB TABLET PO ONE (08:15)
[2021-09-04] MEDS ORDERED: INSULIN LISPRO 100 UNIT/ML 3ML VIAL for OP,RR ONLY. SQ ONE (08:25)
[2021-09-04] MEDS: fentaNYL PF VIAL 100 MCG/2 ML VIAL IVP PRN ×2 (09:05→09:23)
[2021-09-04 09:43] VITALS: BP 117/68
--- NOTE | 2021-09-04 13:13 | OP ---
DATE OF SURGERY: 09/04/2021 PREOPERATIVE DIAGNOSIS: Carpal tunnel syndrome, left. POSTOPERATIVE DIAGNOSIS: Carpal tunnel syndrome, left. PROCEDURE: Carpal tunnel release, left. SURGEON: Adama Hart Jr, DO COMPLIANCE VICE PRESIDENT: Dennis Nina. ANESTHESIA: General. COMPLICATIONS: None. ESTIMATED BLOOD LOSS: 5 mL. DESCRIPTION OF PROCEDURE: The patient was taken to the operative suite, given general anesthetic. Left upper extremity was then prepped and draped in a sterile fashion. After exsanguination, tourniquet was inflated to 250 mmHg. Incision was begun directly over the area of the transverse carpal ligament in line with the radial border of the fourth digit. This was taken through skin and subcutaneous tissues and then down through the palmar fascia. The transverse carpal ligament was then identified and released in its entirety. The underlying nerve was noted to be completely intact and free. No other constrictions were noted. Therefore, this was thoroughly irrigated. Bovie knife was used for superficial bleeding and then this was closed in an interrupted fashion. Local was placed within the sites of the incision. Sterile dressing was applied. Tourniquet was deflated with good return of pulses and capillary refill. The patient was then taken from the operative bed to the postoperative bed, taken to the PACU in stable condition. JASSI/ARMANDO/JOSE L DR: Aristides TID: [id number]
== END 2021-09-04 10:03 | disposition home or self-care (01) ==
LOC: SURG 06:00
PROVIDERS: ATTEND Orthopaedic Surgery
DX: G56.02 Carpal tunnel syndrome, left upper limb (principal); I10 Essential (primary) hypertension; E78.00 Pure hypercholesterolemia, unspecified; K21.9 Gastro-esophageal reflux disease without esophagitis; E11.9 Type 2 diabetes mellitus without complications; Z90.710 Acquired absence of both cervix and uterus; Z98.890 Other specified postprocedural states; Z79.84 Long term (current) use of oral hypoglycemic drugs; Z79.899 Other long term (current) drug therapy
CPT/HCPCS: 64721; 82962; A4930; A6449; J0690; J1100; J1815; J2405; J2704; J3010; J3490; A4657; A6454; J2250